=== PATIENT | male | born 1960 | race African-American/Black ===

== ENCOUNTER 2018-06-24 14:36 | Inpatient (IN) | payer OTHER ==
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
[2018-06-24 15:44] LABS: BASO % 0.4 % (0-2.0); EOS % 1.4 % (0-4.5); HEMATOCRIT 37.7 % (35.4-49); HEMOGLOBIN 12.4 GM/dL (11.7-16.9); LYMPH % 23.5 % (8-40); MCH 27.6 pg (25.7-33.7); MCHC 32.9 g/dl (32.0-35.9); MEAN CELL VOLUME 83.9 fl (80-96); MEAN PLT VOLUME 8.6 fl (7.5-11.1); MONO % 7.1 % (3.8-10.2); NEUT % 67.6 % (42.8-82.8); PLATELET COUNT 254 K/MM3 (134-434); RDW 13.1 % (11.9-15.9); WHITE BLOOD COUNT 12.3 K/mm3 (4.0-10.0)
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
[2018-06-24 16:04] LABS: INR 1.08 (0.83-1.09); PROTHROMBIN TIME (PATIENT) 12.8 SEC (9.7-13.0)
[2018-06-24] MEDS ORDERED: PIPERACILLIN/TAZOB 3.375 GM 3.375 GM in DEXTROSE 5%-WATER - 50 ML IVPB ONE (16:04)
[2018-06-24 16:05] LABS: ALBUMIN 3.2 g/dl (3.4-5.0); ALK PHOS 105 U/L (45-117); ANION GAP 6 MMOL/L (8-16); BILIRUBIN,TOTAL 0.5 mg/dL (0.2-1); BLOOD UREA NITROGEN 14 mg/dL (7-18); CALCIUM 8.3 mg/dL (8.5-10.1); CHLORIDE 102 mmol/L (98-107); CO2 31 mmol/L (21-32); CREATININE 1.3 mg/dL (0.55-1.3); GLUCOSE,RANDOM 236 mg/dL (74-106); POTASSIUM 3.4 mmol/L (3.5-5.1); SGOT/AST 28 U/L (15-37); SGPT/ALT 30 U/L (13-61); SODIUM 139 mmol/L (136-145); TOT PROT 7.5 g/dl (6.4-8.2)
[2018-06-24] MEDS ORDERED: VANCOMYCIN 1,500 MG in DEXTROSE 5%-WATER - 500 ML IVPB ONE (16:48)
[2018-06-24] MEDS ORDERED: PIPERACILLIN/TAZOB 3.375 GM 3.375 GM/50 ML BAG IVPB ONE (17:22)
[2018-06-24 17:26] LABS: MAGNESIUM 2.1 mg/dL (1.8-2.4); PHOSPHOROUS 2.8 mg/dL (2.5-4.9)
[2018-06-24] MEDS ORDERED: MIDAZOLAM HCL 2 MG/2 ML SINGLE DOSE VIAL IVPUSH ONE (17:48)
[2018-06-24] MEDS ORDERED: CLINDAMYCIN 600MG PREMIX IVPB 600 MG/50 ML BAG IVPB ONE (17:48)
[2018-06-24] MEDS ORDERED: ACETAMINOPHEN 1000 MG/100 ML VIAL (NON FORMULARY) IVPB ONE (17:49)
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
[2018-06-24 18:28] LABS: ERYTHROCYTE SEDIMENTATION RATE 40 mm/hr (0-20)
[2018-06-24] MEDS ORDERED: POTASSIUM CHLORIDE TABS 20 MEQ TABLET.ER (FP) PO ONE (18:30)
[2018-06-24] MEDS: VANCOMYCIN 1,500 MG in DEXTROSE 5%-WATER - 250 ML IVPB ONE (19:13)
[2018-06-24] MEDS ORDERED: INSULIN (NOVOLOG) ASPART 100 UNITS/ML 10ML VIAL ONE (19:15)
[2018-06-24] MEDS: INSULIN SLIDING SCALE (NOVOLOG) 1 VIAL SQ SCH (19:17)
[2018-06-24] MEDS: HEPARIN NA (PORCINE) 5,000 UNITS/ML 1ML VIAL SQ SCH (21:41)
[2018-06-24] MEDS: VANCOMYCIN 1 GM PREMIX - 1 GM/200 ML BAG IVPB SCH (21:41)
[2018-06-24] MEDS ORDERED: VANCOMYCIN 1 GM in D5W (PRE-DOCKED) 1,000 MG/250 ML IVPB SCH (22:00)
[2018-06-25] MEDS ORDERED: PIPERACILLIN/TAZOBACTAM 3.375 GM VIAL IVPB ONE ×2 (00:53→09:20)
[2018-06-25] MEDS ORDERED: DEXTROSE 5%-WATER - 50 ML IVPB ONE ×3 (00:53→17:21)
[2018-06-25] MEDS: PIPERACILLIN/TAZOB 3.375 GM 3.375 GM in DEXTROSE 5%-WATER - 50 ML IVPB SCH ×2 (01:36→10:06)
[2018-06-25] MEDS: HEPARIN NA (PORCINE) 5,000 UNITS/ML 1ML VIAL SQ SCH ×3 (05:11→22:09)
[2018-06-25] MEDS: INSULIN SLIDING SCALE (NOVOLOG) 1 VIAL SQ SCH ×3 (06:08→17:37)
[2018-06-25 06:59] LABS: BASO % 0.5 % (0-2.0); EOS % 1.3 % (0-4.5); HEMATOCRIT 37.2 % (35.4-49); HEMOGLOBIN 12.3 GM/dL (11.7-16.9); LYMPH % 28.2 % (8-40); MCH 27.5 pg (25.7-33.7); MEAN CELL VOLUME 83.4 fl (80-96); MEAN PLT VOLUME 8.1 fl (7.5-11.1); MONO % 6.5 % (3.8-10.2); NEUT % 63.5 % (42.8-82.8); PLATELET COUNT 246 K/MM3 (134-434); RBC 4.46 M/mm3 (4.00-5.60); RDW 13.3 % (11.9-15.9); WHITE BLOOD COUNT 9.2 K/mm3 (4.0-10.0)
[2018-06-25 07:33] LABS: INR 1.13 (0.83-1.09); PROTHROMBIN TIME (PATIENT) 13.3 SEC (9.7-13.0)
[2018-06-25 07:36] LABS: ANION GAP 5 MMOL/L (8-16); BLOOD UREA NITROGEN 11 mg/dL (7-18); CALCIUM 8.1 mg/dL (8.5-10.1); CHLORIDE 103 mmol/L (98-107); CO2 27 mmol/L (21-32); CREATININE 1.2 mg/dL (0.55-1.3); GLUCOSE,RANDOM 244 mg/dL (74-106); MAGNESIUM 2.1 mg/dL (1.8-2.4); PHOSPHOROUS 2.8 mg/dL (2.5-4.9); POTASSIUM 4.1 mmol/L (3.5-5.1); SODIUM 136 mmol/L (136-145)
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
[2018-06-25] MEDS: BACITRACIN 15 GM TUBE TOPICAL OINTMENT TP SCH (12:05)
[2018-06-25] MEDS: VANCOMYCIN 1 GM PREMIX - 1 GM/200 ML BAG IVPB SCH ×3 (12:12→23:59)
[2018-06-25] MEDS ORDERED: PT OWN MED DRAWER 7, Y5N ONE (13:23)
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
[2018-06-25] MEDS ORDERED: PIPERACILLIN/TAZOBACTAM 2.25 GM VIAL IVPB ONE (17:21)
[2018-06-25] MEDS: PIPERACILLIN/TAZOB 2.25 GM 2.25 GM in DEXTROSE 5%-WATER - 50 ML IVPB SCH (17:43)
[2018-06-25 18:18] LABS: PH,URINE 6.5 (5.0-8.0); URINE APPEARANCE CLEAR; URINE BILIRUBIN NEGATIVE (NEGATIVE); URINE COLOR YELLOW; URINE GLUCOSE (UA) 1+ (NEGATIVE); URINE KETONE NEGATIVE (NEGATIVE); URINE LEUK ESTERASE NEGATIVE (NEGATIVE); URINE NITRITE NEGATIVE (NEGATIVE); URINE PROTEIN NEGATIVE (NEGATIVE)
[2018-06-25] MEDS ORDERED: INSULIN (LEVEMIR) 100 UNITS/ML UNITS SQ SCH (22:00)
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
[2018-06-26] MEDS ORDERED: DEXTROSE 5%-WATER - 50 ML IVPB ONE ×3 (01:17→17:30)
[2018-06-26] MEDS ORDERED: PIPERACILLIN/TAZOBACTAM 2.25 GM VIAL IVPB ONE ×3 (01:17→17:30)
[2018-06-26] MEDS: PIPERACILLIN/TAZOB 2.25 GM 2.25 GM in DEXTROSE 5%-WATER - 50 ML IVPB SCH ×3 (02:47→17:35)
[2018-06-26] MEDS: HEPARIN NA (PORCINE) 5,000 UNITS/ML 1ML VIAL SQ SCH ×3 (05:08→21:07)
[2018-06-26] MEDS: INSULIN SLIDING SCALE (NOVOLOG) 1 VIAL SQ SCH ×2 (07:00→11:18)
[2018-06-26] MEDS: BACITRACIN 15 GM TUBE TOPICAL OINTMENT TP SCH (09:36)
--- NOTE | 2018-06-26 10:35 | EKG ---
Test Reason : Blood Pressure : / mmHG Vent. Rate : 076 BPM Atrial Rate : 076 BPM P-R Int : 176 ms QRS Dur : 102 ms QT Int : 390 ms P-R-T Axes : 053 092 024 degrees QTc Int : 438 ms NORMAL SINUS RHYTHM RIGHTWARD AXIS POSSIBLE ANTERIOR INFARCT , AGE UNDETERMINED ABNORMAL ECG NO PREVIOUS ECGS AVAILABLE Confirmed by ESPERANZA KOVACS MD ([id number]) on 06/26/2018 10:35:15 AM Referred By: Confirmed By:ESPERANZA KOVACS MD
[2018-06-26] MEDS ORDERED: INSULIN (NOVOLOG) ASPART 100 UNITS/ML 10ML VIAL ONE ×2 (11:17→20:12)
--- NOTE | 2018-06-26 11:58 | ECHO ---
Name: SHERIN MCDONALD JR Exam:Adult Echocardiogram Study Date: 06/26/2018 10:14 AM Age: 57 yrs Reason For Study: chest pain elevated troponin Height: 71 in Weight: 234 lb BSA: 2.3 m2 MMode/2D Measurements & Calculations IVSd: 1.2 cm Ao root diam: 3.1 cm LVIDd: 4.6 cm LA dimension: 3.7 cm LVIDs: 3.5 cm LVPWd: 1.2 cm EDV(Teich): 96.0 ml LVOT diam: 2.1 cm ESV(Teich): 49.9 ml Doppler Measurements & Calculations MV E max tor: 68.1 cm/sec Ao V2 max: 103.4 cm/sec MV A max tor: 59.2 cm/sec Ao max P.3 mmHg MV E/A: 1.1 Ao V2 mean: 78.5 cm/sec MV dec time: 0.15 sec Ao mean P.8 mmHg Ao V2 VTI: 19.9 cm BERTA(I,D): 1.7 cm2 BERTA(V,D): 1.6 cm2 LV V1 max P.94 mmHg SV(LVOT): 33.9 ml LV V1 mean P.50 mmHg LV V1 max: 48.6 cm/sec LV V1 mean: 33.0 cm/sec LV V1 VTI: 10.0 cm Med Peak E' Tor: 5.0 cm/sec Med E/e': 13.7 Lat Peak E' Tor: 5.1 cm/sec Lat E/e': 13.4 Procedure The study was technically good with many images being of high quality. Left Ventricle The left ventricle is normal in size. There is mild concentric left ventricular hypertrophy. Ejection Fraction = 50-55%. Left ventricular systolic function is low normal. The transmitral spectral Doppler flow pat tern is normal for age. Right Ventricle The right ventricle is normal in size and function. Atria The left atrial size is normal. Right atrium not well visualized. Mitral Valve The mitral valve is normal. There is trace mitral regurgitation. Tricuspid Valve The tricuspid valve is not well visualized, but is grossly normal. There is trace tricuspid regurgita tion. There was insufficient TR detected to calculate RV systolic pressure. Aortic Valve The aortic valve opens well. The aortic valve is normal in structure and function. The aortic valve i s trileaflet. No aortic regurgitation is present. Pulmonic Valve The pulmonic valve is not well visualized. Great Vessels The aortic root is normal size. Pericardium/Pleura There is no pericardial effusion. Interpretation Summary There is no comparison study available. The left ventricle is normal in size. There is mild concentric left ventricular hypertrophy. There is trace tricuspid regurgitation. Ejection Fraction = 50-55%. The right ventricle is normal in size and function. There is trace mitral regurgitation. Ritchie Noel MD 06/26/2018 11:57 AM
[2018-06-26] MEDS: VANCOMYCIN 1 GM PREMIX - 1 GM/200 ML BAG IVPB SCH ×2 (12:30→23:51)
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
[2018-06-26] MEDS ORDERED: INSULIN (LEVEMIR) 100 UNITS/ML UNITS SQ SCH (13:03)
[2018-06-26] MEDS ORDERED: INSULIN SLIDING SCALE (NOVOLOG) 1 VIAL SQ SCH (14:58)
--- NOTE | 2018-06-26 15:35 | PN ---
Physical Exam: SUBJECTIVE: Patient seen and examined. REBECCA overnight, no complaints. Pt. denies fevers, chills, blood in the stool or urine. OBJECTIVE: Vital Signs Period Temp Pulse Resp BP Sys/Reese Pulse Ox Last 24 Hr 97.7 F-99.2 F 77-88 9-20 148-157/81-98 98-98 GENERAL: The patient is awake, alert, and fully oriented, in no acute distress. HEAD: Normal with no signs of trauma. EYES: sclera anicteric, conjunctiva clear. No ptosis. ENT: Ears normal, nares patent, moist mucous membranes. NECK: Trachea midline, full range of motion, supple. LUNGS: Breath sounds equal, clear to auscultation bilaterally, no wheezes, no crackles, no accessory muscle use. HEART: Regular rate and rhythm, S1, S2 without murmur ABDOMEN: Soft, nontender, nondistended, normoactive bowel sounds, no guarding, no rebound, no hepatosplenomegaly, no masses. EXTREMITIES: 1+ left dorsal pedal pulses, warm, No calf tenderness. Decreased edema, thickened skin NEUROLOGICAL: Normal speech, gait not assessed. Unable to discriminate between dull and sharp up to the mid bartlett bilaterally on lower extremities bilaterally. PSYCH: Normal mood, normal affect. SKIN: B/l Lower extremity: Venous stasis ulceration with multiple ulcers of various stages of healing, multiple bullae varying in size and fluctuant. Laboratory Results - last 24 hr 06/25/18 06/25/18 06/25/18 17:20 17:20 17:20 POC Glucometer Urine Color Yellow Urine Appearance Clear Urine pH 6.5 Ur Specific [place] 1.013 Urine Protein Negative 29 H Urine Glucose (UA) 1+ H Urine Ketones Negative Urine Blood Negative Urine Nitrite Negative Urine Bilirubin Negative Urine Urobilinogen 1.0 Ur Leukocyte Esterase Negative Urine Creatinine 89.0 06/25/18 06/25/18 06/26/18 17:36 21:26 06:10 POC Glucometer 215 257 202 Urine Color Urine Appearance Urine pH Ur Specific [place] Urine Protein Urine Glucose (UA) Urine Ketones Urine Blood Urine Nitrite Urine Bilirubin Urine Urobilinogen Ur Leukocyte Esterase Urine Creatinine 06/26/18 11:14 POC Glucometer 259 Urine Color Urine Appearance Urine pH Ur Specific [place] Urine Protein Urine Glucose (UA) Urine Ketones Urine Blood Urine Nitrite Urine Bilirubin Urine Urobilinogen Ur Leukocyte Esterase Urine Creatinine Active Medications Home Medications Medication Instructions Recorded NK [No Known Home Medication] 06/24/18 Current Medications Bacitracin (Bacitracin -) 1 applic TP DAILY ROSMERY Last Admin: 06/26/18 09:36 Dose: 1 applic Heparin Sodium (Porcine) (Heparin -) 5,000 unit SQ TID ROSMERY Last Admin: 06/26/18 13:38 Dose: 5,000 unit Vancomycin HCl (Vancomycin 1 Gm Premix -) 1 gm in 200 mls @ 166.667 mls/hr IVPB Q12H ROSMERY; Protocol Last Admin: 06/26/18 12:30 Dose: 166.667 mls/hr Piperacillin Sod/Tazobactam (Sod 2.25 gm/ Dextrose) 50 mls @ 100 mls/hr IVPB Q8H-IV ROSMERY; Protocol Last Admin: 06/26/18 09:36 Dose: 100 mls/hr Insulin Aspart (Novolog Vial Sliding Scale -) 1 vial SQ TIDAC ROSMERY; Protocol Insulin Detemir (Levemir Vial) 15 units SQ HS ROSMERY Lisinopril (Prinivil) 20 mg PO DAILY [facility] ASSESSMENT/PLAN: Pt. is a 57 y.o. M w/o PMHx. presenting for increased lower extremity swelling and erythema. Foot X-ray pending read. Labs positive for elevated glucose and WBC count. Physical exam positive for deficits in sharp/dull discrimination, venous stasis ulcers and increased lower extremity swelling. #Cellulits Foot X-ray pending read, however per my read suspicious for osteomyleitis given Pt.s family Hx., neurological deficit pattern, and elevated random glucose. Pt. endorses taking Tylenol 3pills Q4H and therefore may be masking fever on initial presentation, will continue to monitor. Consult to Wound Care (Dr. Anderson) appreciated Consult to ID (Dr. Campbell) appreciated - Started Vancomycin 1g BID and Zosyn 3.375 Q8H based on weight and Cr. Cl. (Per guidelines of "Zak 2013" Pt. should be on Vancomycin 1gm Q8H and Zosyn 3.375 Q6H), will defer to ID recommendations. Duplex of LE negative for DVTs X-Ray reads suspicious for OM per my read, MRI of lower extremity positive for OM #Hyperglycemia likely 2/2 a newly diagnosed Diabetes Mellitus Random Glucose 236 on admission Strong Family Hx. of DM A1c: 11.9 start Levemir 15 units HS c/w BGM TIDAC and ISS TIDAC will need outpatient follow up with PCP will need referral to Instructional Support Services Director on discharge f/u Cr. /Albumin Ratio and Microalbumin Endocrine consult (Dr. Reed) appreciated #HTN BP consistently in 150s/80s start Lisinopril 20mg Echo(06/26/18): mild LVH, normal EF #FEN no IVF, encourage PO intake monitor electrolytes and replete as needed, replete potassium Na restricted diabetic diet #DVT Ppx. Heparin SQ 5k Visit type - Emergency Visit Emergency Visit: Yes ED Registration Date: 06/24/18 Care time: The patient presented to the Emergency Department on the above date and was hospitalized for further evaluation of their emergent condition. - New Patient This patient is new to me today: No - Critical Care Critical Care patient: No
[2018-06-26] MEDS: LISINOPRIL 20 MG TABLET (FP) PO SCH (15:49)
--- NOTE | 2018-06-26 16:52 | PN ---
Progress Note (short form) - Note Progress Note: surgery Asked to evaluate patient for b/l LE blisters and right big toe wound. Pt is a 57 yo M, with no known PMH (no PCP care), who presented with complaints of blisters on his lower extremities and a worsening ulcer on his R great toe over the past 3 weeks. Over the past few years, he has also noticed darkening and thickening of the skin on his b/l legs, with blisters that will rupture with clear fluid. 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 He has never been seen regularly by a PCP or vascular. He denies any fever or drainage from the ulcer on his toe. Pt denies any fevers/chills, headache, vision changes, syncope , chest pain, orthopnea/PND, palpitations, SOB, nausea/vomiting Vital Signs Temp 97.9 F 06/26/18 13:03 Pulse 88 06/26/18 13:03 Resp 9 L 06/26/18 13:03 BP 148/83 06/26/18 13:03 Pulse Ox 98 06/26/18 09:00 Intake & Output 06/25/18 06/26/18 06/26/18 23:59 11:59 23:59 Intake Total 1600 650 750 Output Total 400 Balance 1200 650 750 Intake: IVPB 350 350 Oral 1600 300 400 Output: Urine 400 Void 400 Other: Voiding Method Toilet Toilet # Unmeasured Voids Void 2 2 2 Bowel Movement Yes No CBC, BMP 06/25/18 06:10 06/25/18 06:10 PE: A&Ox3, NAD unlabored resp on RA B/l LE with diffuse edema, multiple blisters of various stages and chronic skin changes throughout b/l LE compartments. no tracking erythema, no foul odor or d/ c, Right great toe with stage 2 5x5cm ulcer, well circumscribed with fibrinous exudate in the center and beefy red base throughout no active d/c, no foul odor. Legs and feet warm to the touch. MRI right foot bony edema consistent with osteomeylitis. Problem List - Problems (1) Venous stasis ulcer Assessment/Plan: Patient newly diagnoses DM with venous stasis ulcers throughout LE and DM right great toe ulcer with osteomeylitis. 1) CTA with runoff to evaluate b/L LE vasculature 2) Santyl to center of wound right great toe 3) Bacitracin and Kurlex to b/l LE daily 4) compression kobi wraps b/l LE daily 5) Endocrine recommendations appreciated 6) IV ABX per ID Evaluation and plan discussed with Dr Anderson. Code(s): I83.009 - VARICOSE VEINS OF UNSP LOWER EXTREMITY W ULCER OF UNSP SITE; L97.909 - NON-PRS CHRONIC ULC UNSP PRT OF UNSP LOW LEG W UNSP SEVERITY
[2018-06-26] MEDS: COLLAGENASE CLOSTRIDIUM HIST. 30 GRAMS TUBE TP SCH (17:35)
--- NOTE | 2018-06-26 20:11 | PN ---
Progress Note (short form) - Note Progress Note: Vascular Surgery Pt seen and examined. Right great toe ulcer for 1 week. No palpable pulses in right foot. MRI confirms osteo. CTA done. awaiting official results. If found to have stenosis, might need angiogram to help healing. Martin Anderson DO
[2018-06-27] MEDS ORDERED: DEXTROSE 5%-WATER - 50 ML IVPB ONE ×3 (00:51→18:18)
[2018-06-27] MEDS ORDERED: PIPERACILLIN/TAZOBACTAM 2.25 GM VIAL IVPB ONE ×3 (00:51→18:18)
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
[2018-06-27] MEDS: PIPERACILLIN/TAZOB 2.25 GM 2.25 GM in DEXTROSE 5%-WATER - 50 ML IVPB SCH ×3 (02:20→18:20)
[2018-06-27] MEDS: HEPARIN NA (PORCINE) 5,000 UNITS/ML 1ML VIAL SQ SCH ×3 (05:42→21:40)
[2018-06-27] MEDS: INSULIN SLIDING SCALE (NOVOLOG) 1 VIAL SQ SCH ×4 (06:27→21:40)
[2018-06-27] MEDS ORDERED: metFORMIN HCL 500 MG TABLET (FP) PO SCH (07:00)
[2018-06-27 07:21] LABS: BASO % 0.4 % (0-2.0); EOS % 1.6 % (0-4.5); HEMATOCRIT 36.4 % (35.4-49); HEMOGLOBIN 12.4 GM/dL (11.7-16.9); LYMPH % 30.7 % (8-40); MCH 28.2 pg (25.7-33.7); MCHC 33.9 g/dl (32.0-35.9); MONO % 7.8 % (3.8-10.2); NEUT % 59.5 % (42.8-82.8); PLATELET COUNT 244 K/MM3 (134-434); RBC 4.38 M/mm3 (4.00-5.60); RDW 13.4 % (11.9-15.9)
[2018-06-27 07:27] LABS: ANION GAP 6 MMOL/L (8-16); BLOOD UREA NITROGEN 16 mg/dL (7-18); CALCIUM 8.3 mg/dL (8.5-10.1); CHLORIDE 105 mmol/L (98-107); CO2 28 mmol/L (21-32); CREATININE 1.4 mg/dL (0.55-1.3); GLUCOSE,RANDOM 210 mg/dL (74-106); PHOSPHOROUS 3.6 mg/dL (2.5-4.9); POTASSIUM 4.1 mmol/L (3.5-5.1); SODIUM 139 mmol/L (136-145)
[2018-06-27] MEDS: LISINOPRIL 20 MG TABLET (FP) PO SCH (10:04)
[2018-06-27] MEDS: COLLAGENASE CLOSTRIDIUM HIST. 30 GRAMS TUBE TP SCH (10:05)
[2018-06-27] MEDS: BACITRACIN 15 GM TUBE TOPICAL OINTMENT TP SCH (10:06)
[2018-06-27] MEDS: INSULIN (LEVEMIR) 100 UNITS/ML UNITS SQ SCH ×2 (10:23→21:40)
[2018-06-27] MEDS: VANCOMYCIN 1 GM PREMIX - 1 GM/200 ML BAG IVPB SCH (11:58)
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
--- NOTE | 2018-06-27 13:22 | PN ---
Physical Exam: SUBJECTIVE: Patient seen and examined. No acute events overnight. Pt. denies any new complaints. No fevers overnight. OBJECTIVE: Vital Signs Period Temp Pulse Resp BP Sys/Reese Pulse Ox Last 24 Hr 98.1 F-98.1 F 85-87 20-20 141-148/87-96 98 GENERAL: The patient is awake, alert, and fully oriented, in no acute distress. HEAD: Normal with no signs of trauma. EYES: sclera anicteric, conjunctiva clear. No ptosis. ENT: Ears normal, nares patent, moist mucous membranes. NECK: Trachea midline, full range of motion, supple. LUNGS: Breath sounds equal, clear to auscultation bilaterally, no wheezes, no crackles, no accessory muscle use. HEART: Regular rate and rhythm, S1, S2 without murmur ABDOMEN: Soft, nontender, nondistended, normoactive bowel sounds, no guarding, no rebound, no hepatosplenomegaly, no masses. EXTREMITIES: 1+ left dorsal pedal pulses, warm, No calf tenderness. Decreased edema, thickened skin NEUROLOGICAL: Normal speech, gait not assessed. Unable to discriminate between dull and sharp up to the mid bartlett bilaterally on lower extremities bilaterally. PSYCH: Normal mood, normal affect. SKIN: B/l Lower extremity bandaged Laboratory Results - last 24 hr 06/26/18 06/26/18 06/26/18 06:00 17:11 21:05 WBC RBC Hgb Hct MCV MCH MCHC RDW Plt Count MPV Absolute Neuts (auto) Neutrophils % Lymphocytes % Monocytes % Eosinophils % Basophils % Nucleated RBC % Sodium Potassium Chloride Carbon Dioxide Anion Gap BUN Creatinine Creat Clearance w eGFR POC Glucometer 235 228 Random Glucose Calcium Phosphorus Magnesium Random Vancomycin HIV Genotype Non reactive 06/27/18 06/27/18 06/27/18 05:38 06:30 06:30 WBC 8.0 RBC 4.38 Hgb 12.4 Hct 36.4 MCV 83.0 MCH 28.2 MCHC 33.9 RDW 13.4 Plt Count 244 MPV 8.0 Absolute Neuts (auto) 4.8 Neutrophils % 59.5 Lymphocytes % 30.7 Monocytes % 7.8 Eosinophils % 1.6 Basophils % 0.4 Nucleated RBC % 0 Sodium 139 Potassium 4.1 Chloride 105 Carbon Dioxide 28 Anion Gap 6 L BUN 16 Creatinine 1.4 H Creat Clearance w eGFR 52.62 POC Glucometer 209 Random Glucose 210 H Calcium 8.3 L Phosphorus 3.6 Magnesium 2.0 Random Vancomycin HIV Genotype 06/27/18 06/27/18 09:30 10:20 WBC RBC Hgb Hct MCV MCH MCHC RDW Plt Count MPV Absolute Neuts (auto) Neutrophils % Lymphocytes % Monocytes % Eosinophils % Basophils % Nucleated RBC % Sodium Potassium Chloride Carbon Dioxide Anion Gap BUN Creatinine Creat Clearance w eGFR POC Glucometer 203 Random Glucose Calcium Phosphorus Magnesium Random Vancomycin 12.4 L HIV Genotype Active Medications Home Medications Medication Instructions Recorded NK [No Known Home Medication] 06/24/18 Current Medications Amlodipine Besylate (Norvasc -) 5 mg PO DAILY [facility] Bacitracin (Bacitracin -) 1 applic TP DAILY [facility] Last Admin: 06/27/18 10:06 Dose: 1 applic Collagenase (Santyl -) 1 applic TP DAILY [facility]; Protocol Last Admin: 06/27/18 10:05 Dose: 1 applic Heparin Sodium (Porcine) (Heparin -) 5,000 unit SQ TID [facility] Last Admin: 06/27/18 05:42 Dose: 5,000 unit Vancomycin HCl (Vancomycin 1 Gm Premix -) 1 gm in 200 mls @ 166.667 mls/hr IVPB Q12H [facility]; Protocol Last Admin: 06/27/18 11:58 Dose: 166.667 mls/hr Piperacillin Sod/Tazobactam (Sod 2.25 gm/ Dextrose) 50 mls @ 100 mls/hr IVPB Q8H-IV [facility]; Protocol Last Admin: 06/27/18 10:04 Dose: 100 mls/hr Sodium Chloride (Normal Saline -) 1,000 mls @ 83 mls/hr IV [facility] Insulin Aspart (Novolog Vial Sliding Scale -) 1 vial SQ ACHS [facility]; Protocol Last Admin: 06/27/18 11:25 Dose: 4 units Insulin Detemir (Levemir Vial) 15 units SQ BID [facility] Last Admin: 06/27/18 10:23 Dose: 15 units Lisinopril (Prinivil) 20 mg PO DAILY [facility] Last Admin: 06/27/18 10:04 Dose: 20 mg ASSESSMENT/PLAN: Pt. is a 57 y.o. M w/o PMHx. presenting for increased lower extremity swelling and erythema. Foot X-ray pending read. Labs positive for elevated glucose and WBC count. Physical exam positive for deficits in sharp/dull discrimination, venous stasis ulcers and increased lower extremity swelling. #Cellulits Foot X-ray pending read, however per my read suspicious for osteomyleitis given Pt.s family Hx., neurological deficit pattern, and elevated random glucose. Pt. endorses taking Tylenol 3pills Q4H and therefore may be masking fever on initial presentation, will continue to monitor. Consult to Wound Care (Dr. Anderson) appreciated Consult to ID (Dr. Campbell) appreciated - Started Vancomycin 1g BID and Zosyn 3.375 Q8H based on weight and Cr. Cl. (Per guidelines of "Zak 2013" Pt. should be on Vancomycin 1gm Q8H and Zosyn 3.375 Q6H), will defer to ID recommendations. Duplex of LE negative for DVTs X-Ray reads suspicious for OM per my read, MRI of lower extremity positive for OM #Hyperglycemia likely 2/2 a newly diagnosed Diabetes Mellitus Random Glucose 236 on admission [facility] Hx. of DM A1c: 11.9 c/w Levemir 15 units BID c/w BGM TIDAC and ISS TIDAC will need outpatient follow up with PCP will need referral to Bottle Tester on discharge Cr. /Albumin Ratio: 91.8 Endocrine consult (Dr. Reed) appreciated- will start Metformin 500mg BID as outpatient #HTN BP consistently in 150s/80s hold Lisinopril 20mg in light of elevated Creatinine, start Norvasc 5mg Echo(06/26/18): mild LVH, normal EF #FEN no IVF, encourage PO intake monitor electrolytes and replete as needed, replete potassium Na restricted diabetic diet #DVT Ppx. Heparin SQ 5k Visit type - Emergency Visit Emergency Visit: Yes ED Registration Date: 06/24/18 Care time: The patient presented to the Emergency Department on the above date and was hospitalized for further evaluation of their emergent condition. - New Patient This patient is new to me today: Yes Date on this admission: 06/29/18 - Critical Care Critical Care patient: No
[2018-06-27 14:11] LABS: MICROALBUMIN/CREATININE RATIO 91.8 mg/g creat (0.0-30.0)
--- NOTE | 2018-06-27 15:13 | CONSULT ---
Consult - text type - Consultation Consultation Note: Podiatry Consultation: 57 year old diabetic male presented for admission with right great toe ulcer, redness and swelling to the leg. Patient notes that he has history of swelling to both legs but developed a wound of around 1-2 weeks duration, likely from shoegear irritation. Denies F/V/N/C/SOB/CP. Afebrile. Patient notes he does not go to primary care physician. PMHx: DM, HTN Meds: noted ALL: shellfish ALEAH: Pedal pulses nonpalpable, TG wnl, CFT about 3 seconds to all digits bilaterally. On the right foot, there is a medial hallux ulcer with fibrogranular base, macerated borders, down to capsule, no bone exposed, no purulence, (+) serous drainage, no soft tissue crepitus, no streaking cellulitis. MRI: (+) osteomyelitis distal phalanx of hallux Imp: 57 year old diabetic male with right great toe diabetic ulcer and osteomyelitis 1. Continue local wound care with santyl daily to right great toe 2. Reviewed MRI results and treatment options. Patient wants to treat with IV abx and wants to salvage the toe. Wound culture obtained at bedside. 3. PICC line and home IV infusion. 4. Vascular on board. 5. Patient would benefit from HBO eval for outpatient HBO Tx. 6. Will follow in wound healing center. [phone]. Se Barcenas DPM
[2018-06-27] MEDS: SODIUM CHLORIDE 1,000 ML IV SCH (15:22)
[2018-06-27] MEDS ORDERED: INSULIN (NOVOLOG) ASPART 100 UNITS/ML 10ML VIAL ONE (17:21)
--- NOTE | 2018-06-27 18:23 | PN ---
Progress Note (short form) - Note Progress Note: Vascular Surgery CTA reviewed. Suboptimal study as per radiologist. Vessels are patent above the knee. However below the knee the arteries cannot be seen due to venous contamination. Radiology recc that a repeat study be done. Cannot tell for sure if the toe will heal without knowing runoff to foot. can do angiogram on th. Martin Anderson DO
[2018-06-27] MEDS: amLODIPine BESYLATE 5 MG TABLET (FP) PO SCH (21:40)
[2018-06-28] MEDS ORDERED: PT OWN MED DRAWER 7, Y5N ONE ×2 (00:42→12:18)
[2018-06-28] MEDS: VANCOMYCIN 1 GM PREMIX - 1 GM/200 ML BAG IVPB SCH ×2 (00:49→12:23)
[2018-06-28] MEDS ORDERED: PIPERACILLIN/TAZOBACTAM 2.25 GM VIAL IVPB ONE ×3 (01:15→18:09)
[2018-06-28] MEDS ORDERED: DEXTROSE 5%-WATER - 50 ML IVPB ONE ×3 (01:15→18:10)
[2018-06-28] MEDS: PIPERACILLIN/TAZOB 2.25 GM 2.25 GM in DEXTROSE 5%-WATER - 50 ML IVPB SCH ×3 (02:46→18:12)
[2018-06-28] MEDS: INSULIN SLIDING SCALE (NOVOLOG) 1 VIAL SQ SCH ×4 (06:00→21:49)
[2018-06-28] MEDS: HEPARIN NA (PORCINE) 5,000 UNITS/ML 1ML VIAL SQ SCH ×3 (06:00→21:48)
[2018-06-28] MEDS: SODIUM CHLORIDE 1,000 ML IV SCH ×3 (06:31→22:38)
[2018-06-28 07:20] LABS: BASO % 0.6 % (0-2.0); EOS % 2.5 % (0-4.5); HEMATOCRIT 37.3 % (35.4-49); HEMOGLOBIN 12.1 GM/dL (11.7-16.9); LYMPH % 29.6 % (8-40); MCH 27.2 pg (25.7-33.7); MCHC 32.5 g/dl (32.0-35.9); MEAN CELL VOLUME 83.4 fl (80-96); MONO % 8.1 % (3.8-10.2); NEUT % 59.2 % (42.8-82.8); PLATELET COUNT 263 K/MM3 (134-434); RBC 4.47 M/mm3 (4.00-5.60); RDW 13.7 % (11.9-15.9); WHITE BLOOD COUNT 8.4 K/mm3 (4.0-10.0)
[2018-06-28 07:46] LABS: ANION GAP 3 MMOL/L (8-16); BLOOD UREA NITROGEN 15 mg/dL (7-18); CALCIUM 8.6 mg/dL (8.5-10.1); CHLORIDE 106 mmol/L (98-107); CO2 27 mmol/L (21-32); CREATININE 1.2 mg/dL (0.55-1.3); GLUCOSE,RANDOM 141 mg/dL (74-106); SODIUM 136 mmol/L (136-145)
--- NOTE | 2018-06-28 07:55 | SPA.PREOP ---
- PRE-OP NOTE Dx: Right great toe diabetic ulcer and osteomyelitis. Non-palpable pedal pulses. Planned Procedure: Angiogram Surgeon: Martin Anderson Last Vital Signs Temp Pulse Resp BP Pulse Ox 98.4 F 81 20 144/80 98 06/28/18 06:05 06/28/18 06:05 06/28/18 06:05 06/28/18 06:05 06/27/18 21:00 Lab Results WBC 8.4 K/mm3 (4.0-10.0) 06/28/18 06:55 RBC 4.47 M/mm3 (4.00-5.60) 06/28/18 06:55 Hgb 12.1 GM/dL (11.7-16.9) 06/28/18 06:55 Hct 37.3 % (35.4-49) 06/28/18 06:55 MCV 83.4 fl (80-96) 06/28/18 06:55 MCHC 32.5 g/dl (32.0-35.9) 06/28/18 06:55 RDW 13.7 % (11.9-15.9) 06/28/18 06:55 Plt Count 263 K/MM3 (134-434) 06/28/18 06:55 Sodium 136 mmol/L (136-145) 06/28/18 06:55 Potassium 4.0 mmol/L (3.5-5.1) 06/28/18 06:55 Chloride 106 mmol/L (98-107) 06/28/18 06:55 Carbon Dioxide 27 mmol/L (21-32) 06/28/18 06:55 Anion Gap 3 MMOL/L (8-16) L 06/28/18 06:55 BUN 15 mg/dL (7-18) 06/28/18 06:55 Creatinine 1.2 mg/dL (0.55-1.3) 06/28/18 06:55 Random Glucose 141 mg/dL (74-106) H 06/28/18 06:55 Calcium 8.6 mg/dL (8.5-10.1) 06/28/18 06:55 INR 1.13 (0.83-1.09) H 06/25/18 06:10 - ASSESSMENT/PLAN 1. Make NPO after midnight except po meds 2. GI/DVT PPX 3. Medical optimization / clearance 4. Consent to be obtained by surgeon after risks, benefits and alternatives discussed with patient and or Health Care Proxy. Problem List - Problems (1) Diabetic foot infection Code(s): E11.628 - TYPE 2 DIABETES MELLITUS WITH OTHER SKIN COMPLICATIONS; L08.9 - LOCAL INFECTION OF THE SKIN AND SUBCUTANEOUS TISSUE, UNSP Visit type - Case Type Case Type: ED Admission - New patient This patient is new to me today: Yes Date on this admission: 06/28/18
[2018-06-28] MEDS: amLODIPine BESYLATE 5 MG TABLET (FP) PO SCH (09:50)
[2018-06-28] MEDS: LACTOBACILLUS ACIDOPHILUS 1 TABLET PO SCH (09:50)
[2018-06-28] MEDS: COLLAGENASE CLOSTRIDIUM HIST. 30 GRAMS TUBE TP SCH (09:51)
[2018-06-28] MEDS: BACITRACIN 15 GM TUBE TOPICAL OINTMENT TP SCH (09:52)
[2018-06-28] MEDS: INSULIN (LEVEMIR) 100 UNITS/ML UNITS SQ SCH ×2 (09:53→21:48)
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
[2018-06-28] MEDS ORDERED: amLODIPine BESYLATE 10 MG TABLET (FP) PO SCH (11:15)
--- NOTE | 2018-06-28 11:16 | PN ---
Progress Note (short form) - Note Progress Note: Podiatry F/U: Seen/evaluated at bedside NAD. Denies F/V/N/c/SOB/CP. Afebrile. Awaiting angiogram with vascular sx. ALEAH: Pedal pulses nonpalpable, TG wnl, CFT about 3 seconds to all digits bilaterally. On the right foot, there is a medial hallux ulcer with fibrogranular base, macerated borders, down to capsule, no bone exposed, no purulence, (+) serous drainage, no soft tissue crepitus, no streaking cellulitis. Wound Cx: pending Imp: 57 year old diabetic male with right hallux osteomyelitis 1. IV abx per ID 2. F/u wound cx 3. For angiogram with vascular 4. Will follow Se Barcenas DPM
[2018-06-28] MEDS ORDERED: INSULIN (NOVOLOG) ASPART 100 UNITS/ML 10ML VIAL ONE (11:42)
[2018-06-28] MEDS ORDERED: amLODIPine BESYLATE 5 MG TABLET (FP) PO ONE (13:45)
--- NOTE | 2018-06-28 13:50 | PN ---
Physical Exam: SUBJECTIVE: Patient seen and examined. Pt. states that he has had 2 loose bowel movements overnight, but denies any other complaints. OBJECTIVE: Vital Signs Period Temp Pulse Resp BP Sys/Reese Pulse Ox Last 24 Hr 97.4 F-98.8 F 76-86 20-20 144-159/70-92 98 GENERAL: The patient is awake, alert, and fully oriented, in no acute distress. HEAD: Normal with no signs of trauma. EYES: sclera anicteric, conjunctiva clear. No ptosis. ENT: Ears normal, nares patent, moist mucous membranes. NECK: Trachea midline, full range of motion, supple. LUNGS: Breath sounds equal, clear to auscultation bilaterally, no wheezes, no crackles, no accessory muscle use. HEART: Regular rate and rhythm, S1, S2 without murmur ABDOMEN: Soft, nontender, nondistended, normoactive bowel sounds, no guarding, no rebound, no hepatosplenomegaly, no masses. EXTREMITIES: 1+ left dorsal pedal pulses, warm, No calf tenderness. Decreased edema, thickened skin NEUROLOGICAL: Normal speech, gait not assessed. Unable to discriminate between dull and sharp up to the mid bartlett bilaterally on lower extremities bilaterally. PSYCH: Normal mood, normal affect. SKIN: B/l Lower extremity bandaged Laboratory Results - last 24 hr 06/25/18 06/27/18 06/27/18 17:20 17:15 21:39 WBC RBC Hgb Hct MCV MCH MCHC RDW Plt Count MPV Absolute Neuts (auto) Neutrophils % Lymphocytes % Monocytes % Eosinophils % Basophils % Nucleated RBC % Sodium Potassium Chloride Carbon Dioxide Anion Gap BUN Creatinine Creat Clearance w eGFR POC Glucometer 246 202 Random Glucose Calcium TSH Ur Random Creatinine 86.4 Ur Random Microalbumin 79.3 Microalb/Creat Ratio 91.8 H Random Vancomycin 06/28/18 06/28/18 06/28/18 05:59 06:55 06:55 WBC 8.4 RBC 4.47 Hgb 12.1 Hct 37.3 MCV 83.4 MCH 27.2 MCHC 32.5 RDW 13.7 Plt Count 263 MPV 8.0 Absolute Neuts (auto) 5.0 Neutrophils % 59.2 Lymphocytes % 29.6 Monocytes % 8.1 Eosinophils % 2.5 Basophils % 0.6 Nucleated RBC % 0 Sodium 136 Potassium 4.0 Chloride 106 Carbon Dioxide 27 Anion Gap 3 L BUN 15 Creatinine 1.2 Creat Clearance w eGFR 62.86 POC Glucometer 137 Random Glucose 141 H Calcium 8.6 TSH 2.59 Ur Random Creatinine Ur Random Microalbumin Microalb/Creat Ratio Random Vancomycin 06/28/18 06/28/18 09:48 11:06 WBC RBC Hgb Hct MCV MCH MCHC RDW Plt Count MPV Absolute Neuts (auto) Neutrophils % Lymphocytes % Monocytes % Eosinophils % Basophils % Nucleated RBC % Sodium Potassium Chloride Carbon Dioxide Anion Gap BUN Creatinine Creat Clearance w eGFR POC Glucometer 248 Random Glucose Calcium TSH Ur Random Creatinine Ur Random Microalbumin Microalb/Creat Ratio Random Vancomycin 12.5 L Active Medications Home Medications Medication Instructions Recorded NK [No Known Home Medication] 06/24/18 Current Medications Amlodipine Besylate (Norvasc -) 10 mg PO DAILY [facility] Bacitracin (Bacitracin -) 1 applic TP DAILY [facility] Last Admin: 06/28/18 09:52 Dose: 1 applic Collagenase (Santyl -) 1 applic TP DAILY [facility]; Protocol Last Admin: 06/28/18 09:51 Dose: 1 applic Heparin Sodium (Porcine) (Heparin -) 5,000 unit SQ TID [facility] Last Admin: 06/28/18 13:47 Dose: 5,000 unit Vancomycin HCl (Vancomycin 1 Gm Premix -) 1 gm in 200 mls @ 166.667 mls/hr IVPB Q12H [facility]; Protocol Last Admin: 06/28/18 12:23 Dose: 166.667 mls/hr Piperacillin Sod/Tazobactam (Sod 2.25 gm/ Dextrose) 50 mls @ 100 mls/hr IVPB Q8H-IV [facility]; Protocol Last Admin: 06/28/18 09:49 Dose: 100 mls/hr Sodium Chloride (Normal Saline -) 1,000 mls @ 83 mls/hr IV ASDIR [facility] Last Admin: 06/28/18 06:31 Dose: 83 mls/hr Insulin Aspart (Novolog Vial Sliding Scale -) 1 vial SQ ACHS [facility]; Protocol Last Admin: 06/28/18 12:04 Dose: 4 units Insulin Detemir (Levemir Vial) 15 units SQ BID [facility] Last Admin: 06/28/18 09:53 Dose: 15 units Lactobacillus Acidophilus (Bacid -) 1 tab PO DAILY [facility] Last Admin: 06/28/18 09:50 Dose: 1 tab Lisinopril (Prinivil) 20 mg PO DAILY [facility] Last Admin: 06/27/18 10:04 Dose: 20 mg ASSESSMENT/PLAN: Pt. is a 57 y.o. M w/o PMHx. presenting for increased lower extremity swelling and erythema. Foot X-ray pending read. Labs positive for elevated glucose and WBC count. Physical exam positive for deficits in sharp/dull discrimination, venous stasis ulcers and increased lower extremity swelling. #Osteomyelitis Foot X-ray per my read suspicious for osteomyleitis given Pt.s family Hx., neurological deficit pattern, and elevated random glucose. Pt. endorses taking Tylenol 3pills Q4H and therefore may be masking fever on initial presentation, will continue to monitor. Consult to Wound Care (Dr. Anderson) appreciated- will need CT Angiogram tomorrow as lower extremity CT scan did not have good visualization Consult to ID (Dr. Campbell) appreciated - Started Vancomycin 1g BID and Zosyn 3.375 Q8H based on weight and Cr. Cl. (Per guidelines of "Azk 2013" Pt. C/ w Vancomycin 1gm Q8H and Zosyn 3.375 Q6H), will defer to ID recommendations. Duplex of LE negative for DVTs MRI of lower extremity positive for OM f/u wound culture results Podiatry consult appreciated- Pt. will need PICC line on D/c, hyperbaric Oxygen therapy, and wound healing ([phone]) Will start Bacid and discharge Pt. with prescription to help prevent Cdiff. #Hyperglycemia likely 2/2 a newly diagnosed Diabetes Mellitus Random Glucose 236 on admission [facility] Hx. of DM A1c: 11.9 c/w Levemir 15 units BID c/w BGM TIDAC and ISS TIDAC will need outpatient follow up with PCP will need referral to Clinical Mental Health Counselor on discharge Cr. /Albumin Ratio: 91.8 Endocrine consult (Dr. Reed) appreciated- will start Metformin 500mg BID as outpatient #PARIS Cr. 1.2-->1.4-->1.2 Hold Lisinopril Avoid nephrotoxic agents #HTN BP consistently in 150s/80s hold Lisinopril 20mg in light of elevated Creatinine, increase Norvasc to 10mg Echo(06/26/18): mild LVH, normal EF #FEN no IVF, encourage PO intake monitor electrolytes and replete as needed, replete potassium Na restricted diabetic diet #DVT Ppx. Heparin SQ 5k Visit type - Emergency Visit Emergency Visit: Yes ED Registration Date: 06/24/18 Care time: The patient presented to the Emergency Department on the above date and was hospitalized for further evaluation of their emergent condition. - New Patient This patient is new to me today: No - Critical Care Critical Care patient: No
[2018-06-29] MEDS ORDERED: PT OWN MED DRAWER 7, Y5N ONE ×3 (00:54→15:26)
[2018-06-29] MEDS: VANCOMYCIN 1 GM PREMIX - 1 GM/200 ML BAG IVPB SCH ×2 (00:55→15:05)
[2018-06-29] MEDS ORDERED: DEXTROSE 5%-WATER - 50 ML IVPB ONE ×3 (01:17→17:10)
[2018-06-29] MEDS ORDERED: PIPERACILLIN/TAZOBACTAM 2.25 GM VIAL IVPB ONE ×3 (01:17→17:09)
[2018-06-29] MEDS: PIPERACILLIN/TAZOB 2.25 GM 2.25 GM in DEXTROSE 5%-WATER - 50 ML IVPB SCH ×3 (03:22→17:24)
[2018-06-29] MEDS: HEPARIN NA (PORCINE) 5,000 UNITS/ML 1ML VIAL SQ SCH ×3 (06:24→21:41)
[2018-06-29] MEDS: INSULIN SLIDING SCALE (NOVOLOG) 1 VIAL SQ SCH ×4 (06:24→21:41)
[2018-06-29] MEDS ORDERED: INSULIN (NOVOLOG) ASPART 100 UNITS/ML 10ML VIAL ONE (07:02)
[2018-06-29] MEDS ORDERED: INSULIN (LEVEMIR) 100 UNITS/ML UNITS SQ ONE (07:03)
[2018-06-29] MEDS: PIPERACILLIN/TAZOB 3.375 GM 3.375 GM in DEXTROSE 5%-WATER - 50 ML IVPB SCH (07:27)
[2018-06-29 07:38] LABS: ANION GAP 4 MMOL/L (8-16); BASO % 0.6 % (0-2.0); BLOOD UREA NITROGEN 13 mg/dL (7-18); CALCIUM 8.4 mg/dL (8.5-10.1); CHLORIDE 105 mmol/L (98-107); CO2 26 mmol/L (21-32); CREATININE 1.2 mg/dL (0.55-1.3); EOS % 3.3 % (0-4.5); GLUCOSE,RANDOM 181 mg/dL (74-106); HEMATOCRIT 37.5 % (35.4-49); HEMOGLOBIN 12.4 GM/dL (11.7-16.9); LYMPH % 33.2 % (8-40); MAGNESIUM 2.2 mg/dL (1.8-2.4); MCH 27.6 pg (25.7-33.7); MEAN CELL VOLUME 83.6 fl (80-96); MEAN PLT VOLUME 8.1 fl (7.5-11.1); MONO % 7.1 % (3.8-10.2); NEUT % 55.8 % (42.8-82.8); PLATELET COUNT 270 K/MM3 (134-434); POTASSIUM 4.2 mmol/L (3.5-5.1); RBC 4.49 M/mm3 (4.00-5.60); RDW 13.7 % (11.9-15.9); SODIUM 135 mmol/L (136-145); WHITE BLOOD COUNT 7.9 K/mm3 (4.0-10.0)
[2018-06-29] MEDS ORDERED: INSULIN (LEVEMIR) 100 UNITS/ML UNITS SQ SCH (10:00)
[2018-06-29] MEDS: LACTOBACILLUS ACIDOPHILUS 1 TABLET PO SCH (10:06)
[2018-06-29] MEDS ORDERED: amLODIPine BESYLATE 10 MG TABLET (FP) PO ONE (10:15)
[2018-06-29] MEDS: COLLAGENASE CLOSTRIDIUM HIST. 30 GRAMS TUBE TP SCH (11:00)
[2018-06-29] MEDS: BACITRACIN 15 GM TUBE TOPICAL OINTMENT TP SCH (11:00)
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
[2018-06-29] MEDS ORDERED: LIDOCAINE HCL 1%, 10 MG/ML (20ML VIAL) ONE (11:16)
[2018-06-29] MEDS ORDERED: HEPARIN NA (PORCINE) 5,000 UNITS/ML 1ML VIAL ONE (11:16)
--- NOTE | 2018-06-29 11:22 | PN ---
Physical Exam: SUBJECTIVE: Patient seen and examined. No acute events overnight. Heparin and Novolog held in the AM. Pt. for OR today. OBJECTIVE: Vital Signs Period Temp Pulse Resp BP Sys/Reese Pulse Ox Last 24 Hr 98.3 F-98.8 F 76-84 18-22 137-159/79-96 99 GENERAL: The patient is awake, alert, and fully oriented, in no acute distress. HEAD: Normal with no signs of trauma. EYES: sclera anicteric, conjunctiva clear. No ptosis. ENT: Ears normal, nares patent, moist mucous membranes. NECK: Trachea midline, full range of motion, supple. LUNGS: Breath sounds equal, clear to auscultation bilaterally, no wheezes, no crackles, no accessory muscle use. HEART: Regular rate and rhythm, S1, S2 without murmur ABDOMEN: Soft, nontender, nondistended, normoactive bowel sounds, no guarding, no rebound, no hepatosplenomegaly, no masses. EXTREMITIES: 1+ left dorsal pedal pulses, warm, No calf tenderness. Decreased edema, thickened skin NEUROLOGICAL: Normal speech, gait not assessed. Unable to discriminate between dull and sharp up to the mid bartlett bilaterally on lower extremities bilaterally. PSYCH: Normal mood, normal affect. SKIN: B/l Lower extremity bandaged Laboratory Results - last 24 hr 06/28/18 06/28/18 06/28/18 11:06 17:03 21:44 WBC RBC Hgb Hct MCV MCH MCHC RDW Plt Count MPV Absolute Neuts (auto) Neutrophils % Lymphocytes % Monocytes % Eosinophils % Basophils % Nucleated RBC % Sodium Potassium Chloride Carbon Dioxide Anion Gap BUN Creatinine Creat Clearance w eGFR POC Glucometer 171 210 Random Glucose Calcium Magnesium Random Vancomycin 12.5 L 06/29/18 06/29/18 06/29/18 06:23 06:25 06:25 WBC 7.9 RBC 4.49 Hgb 12.4 Hct 37.5 MCV 83.6 MCH 27.6 MCHC 33.0 RDW 13.7 Plt Count 270 MPV 8.1 Absolute Neuts (auto) 4.4 Neutrophils % 55.8 Lymphocytes % 33.2 Monocytes % 7.1 Eosinophils % 3.3 Basophils % 0.6 Nucleated RBC % 0 Sodium 135 L Potassium 4.2 Chloride 105 Carbon Dioxide 26 Anion Gap 4 L BUN 13 Creatinine 1.2 Creat Clearance w eGFR 62.86 POC Glucometer 188 Random Glucose 181 H Calcium 8.4 L Magnesium 2.2 Random Vancomycin Active Medications Home Medications Medication Instructions Recorded NK [No Known Home Medication] 06/24/18 Current Medications Bacitracin (Bacitracin -) 1 applic TP DAILY [facility] Last Admin: 06/28/18 09:52 Dose: 1 applic Collagenase (Santyl -) 1 applic TP DAILY [facility]; Protocol Last Admin: 06/28/18 09:51 Dose: 1 applic Heparin Sodium (Porcine) (Heparin -) 5,000 unit SQ TID [facility] Last Admin: 06/29/18 06:24 Dose: Not Given Vancomycin HCl (Vancomycin 1 Gm Premix -) 1 gm in 200 mls @ 166.667 mls/hr IVPB Q12H [facility]; Protocol Last Admin: 06/29/18 00:55 Dose: 166.667 mls/hr Piperacillin Sod/Tazobactam (Sod 2.25 gm/ Dextrose) 50 mls @ 100 mls/hr IVPB Q8H-IV [facility]; Protocol Last Admin: 06/29/18 10:06 Dose: 100 mls/hr Sodium Chloride (Normal Saline -) 1,000 mls @ 83 mls/hr IV ASDIR [facility] Last Admin: 06/28/18 22:38 Dose: 83 mls/hr Insulin Aspart (Novolog Vial Sliding Scale -) 1 vial SQ ACHS [facility]; Protocol Last Admin: 06/29/18 06:24 Dose: Not Given Insulin Detemir (Levemir Vial) 20 units SQ BID [facility] Lactobacillus Acidophilus (Bacid -) 1 tab PO DAILY [facility] Last Admin: 06/29/18 10:06 Dose: 1 tab Lisinopril (Prinivil) 20 mg PO DAILY [facility] Last Admin: 06/27/18 10:04 Dose: 20 mg ASSESSMENT/PLAN: Pt. is a 57 y.o. M w/o PMHx. presenting for increased lower extremity swelling and erythema. Foot X-ray pending read. Labs positive for elevated glucose and WBC count. Physical exam positive for deficits in sharp/dull discrimination, venous stasis ulcers and increased lower extremity swelling. #Osteomyelitis Foot X-ray per my read suspicious for osteomyleitis given Pt.s family Hx., neurological deficit pattern, and elevated random glucose. Pt. endorses taking Tylenol 3pills Q4H and therefore may be masking fever on initial presentation, will continue to monitor. Consult to Wound Care (Dr. Anderson) appreciated- will need CT Angiogram tomorrow as lower extremity CT scan did not have good visualization Consult to ID (Dr. Campbell) appreciated - Started Vancomycin 1g BID and Zosyn 3.375 Q8H based on weight and Cr. Cl. (Per guidelines of "Zak 2013" Pt. C/ w Vancomycin 1gm Q8H and Zosyn 3.375 Q6H), will defer to ID recommendations. Duplex of LE negative for DVTs MRI of lower extremity positive for OM wound culture results growing: non-lactose fermenting gram negative bacilli, MRSA presumptive and Gram negative [facility] consult appreciated- Pt. will need PICC line on D/c, hyperbaric Oxygen therapy, and wound healing ([phone]) Will start Bacid and discharge Pt. with prescription to help prevent Cdiff. #Hyperglycemia likely 2/2 a newly diagnosed Diabetes Mellitus Random Glucose 236 on admission [facility] Hx. of DM A1c: 11.9 Increased Levemir to 20 units BID c/w BGM TIDAC and ISS TIDAC will need outpatient follow up with PCP will need referral to [facility] [employer] on discharge Cr. /Albumin Ratio: 91.8 Endocrine consult (Dr. Reed) appreciated- will start Metformin 500mg BID as outpatient #PARIS Cr. 1.2-->1.4-->1.2 Hold Lisinopril Avoid nephrotoxic agents #HTN BP consistently in 150s/80s hold Lisinopril 20mg in light of elevated Creatinine, increase Norvasc to 10mg Echo(06/26/18): mild LVH, normal EF #FEN no IVF, encourage PO intake monitor electrolytes and replete as needed, replete potassium Na restricted diabetic diet #DVT Ppx. Heparin SQ 5k Visit type - Emergency Visit Emergency Visit: Yes ED Registration Date: 06/24/18 Care time: The patient presented to the Emergency Department on the above date and was hospitalized for further evaluation of their emergent condition. - New Patient This patient is new to me today: No - Critical Care Critical Care patient: No - Discharge Referral Physician Referral: Martin Anderson DO ([facility])
[2018-06-29] MEDS ORDERED: MIDAZOLAM HCL 2 MG/2 ML SINGLE DOSE VIAL ONE ×2 (11:57→12:05)
[2018-06-29] MEDS ORDERED: fentaNYL CITRATE 250 MCG/5 ML VIAL ONE (12:05)
[2018-06-29] MEDS ORDERED: LIDOCAINE HCL 1%, 10 MG/ML (20ML VIAL) PNB ONE (12:17)
[2018-06-29] MEDS ORDERED: ONDANSETRON 4 MG/2 ML VIAL IVPUSH PRN ×2 (13:01→15:03)
[2018-06-29] MEDS ORDERED: LACTATED RINGERS SOLUTION 1,000 ML IV SCH (13:15)
--- NOTE | 2018-06-29 13:39 | OP ---
Operative Note - Note: Operative Date: 06/29/18 Pre-Operative Diagnosis: Right great toe ulcer Operation: Aortogram, RLE angiogram Findings: Good runoff in to foot via AT Post-Operative Diagnosis: Same as Pre-op Surgeon: Martin Anderson Anesthesia: Fractional Estimated Blood Loss (mls): 10 Operative Report Dictated: Yes
--- NOTE | 2018-06-29 13:41 | PN ---
Progress Note (short form) - Note Progress Note: Vascular Surgery S/P angiogram RLE Good runoff into foot. should heal ulcer. Cont santyl. PICC line for osteo. Will follow in wound care once DC. Pt is a candidate for HBO Martin Anderson DO
[2018-06-29] MEDS ORDERED: VANCOMYCIN 1,000 MG VIAL (RESTRICTED TO ID ONLY) ONE (14:00)
--- NOTE | 2018-06-29 14:06 | OP ---
DATE OF OPERATION: 06/29/2018 PREOPERATIVE DIAGNOSIS: Right great toe ulcer. POSTOPERATIVE DIAGNOSIS: Right great toe ulcer. PROCEDURE: Aortogram, right lower extremity angiogram. SURGEON: Martin Cervantes MD ANESTHESIA: Fractional. BLOOD LOSS: 10 mL. INDICATIONS: The patient is a 57-year-old male who comes in with a right great toe ulcer. He had an MRI performed showing that he has osteomyelitis of the area. Due to the fact that he is a newly diagnosed diabetic, he does not have any palpable pulses, he needed an angiogram to look at the runoff into his foot. Preoperatively, he had a CTA, which showed venous contaminant below the right knee, and we could not decipher whether patient had good runoff into the foot. Patient was consented for the procedure understanding all risks, benefits, and alternatives and was then taken to the operating room. PROCEDURE IN DETAIL: Once in the operating room, he was laid down on the operating table in the supine manner, and the area of the right and left groin was prepped and draped in the sterile surgical manner. We then went ahead and injected 10 mL of lidocaine 1% over the left common femoral artery. We then under ultrasound guidance visualized the left common femoral artery, and a micropuncture needle was used, and we punctured the left common femoral artery, a micropuncture wire was inserted, micropuncture sheath was inserted, and a traditional 5-Japanese sheath was inserted. We then placed a 0.035 floppy guidewire up into the aorta followed by an Omni Flush catheter. We then shot an aortogram via hand injection showing that the aorta and iliac arteries were without any disease. We then placed a 0.035 floppy guidewire up and over to the right common femoral artery and our Omni Flush catheter followed. We then shot an angiogram via hand injection showing that the common femoral artery, the profunda, and the SFA were patent. The popliteal artery was patent. TP trunk was patent. The trifurcation was patent. Patients main runoff was AT going into the foot, into the forefoot. Patient had PT runoff into the foot, as well. At this point, no intervention was needed. There was no areas of stenosis. We brought our Omniflush catheter up and over. The sheath was removed from the left groin. Pressure was held for 5 minutes. After there was no more bleeding, area was wet and dried, and Dermabond was placed. The patient tolerated the procedure with no complications. Patient transferred to PACU in stable condition. MARTIN CERVANTES DO [id number]
[2018-06-29] MEDS ORDERED: VANCOMYCIN 1,000 MG VIAL (RESTRICTED TO ID ONLY) IVPB ONE (14:07)
[2018-06-29] MEDS: LACTATED RINGERS SOLUTION 1,000 ML IV SCH (15:32)
[2018-06-29] MEDS: SODIUM CHLORIDE 1,000 ML IV SCH (16:50)
[2018-06-29] MEDS: INSULIN (LEVEMIR) 100 UNITS/ML UNITS SQ SCH (21:41)
[2018-06-29] MEDS ORDERED: amLODIPine BESYLATE 10 MG TABLET (FP) PO SCH (22:00)
[2018-06-30] MEDS: VANCOMYCIN 1 GM PREMIX - 1 GM/200 ML BAG IVPB SCH ×2 (00:53→14:42)
[2018-06-30] MEDS ORDERED: PIPERACILLIN/TAZOBACTAM 2.25 GM VIAL IVPB ONE ×3 (01:44→17:55)
[2018-06-30] MEDS ORDERED: DEXTROSE 5%-WATER - 50 ML IVPB ONE ×3 (01:44→17:55)
[2018-06-30] MEDS: PIPERACILLIN/TAZOB 2.25 GM 2.25 GM in DEXTROSE 5%-WATER - 50 ML IVPB SCH ×3 (01:53→18:14)
[2018-06-30] MEDS ORDERED: PT OWN MED DRAWER 7, Y5N ONE (01:55)
[2018-06-30] MEDS: SODIUM CHLORIDE 1,000 ML IV SCH ×2 (02:20→17:51)
[2018-06-30] MEDS: HEPARIN NA (PORCINE) 5,000 UNITS/ML 1ML VIAL SQ SCH ×3 (05:29→23:00)
[2018-06-30] MEDS: INSULIN SLIDING SCALE (NOVOLOG) 1 VIAL SQ SCH ×4 (06:15→23:03)
[2018-06-30 08:23] LABS: BASO % 0.5 % (0-2.0); EOS % 2.4 % (0-4.5); HEMATOCRIT 39.4 % (35.4-49); LYMPH % 29.8 % (8-40); MCH 27.8 pg (25.7-33.7); MCHC 32.9 g/dl (32.0-35.9); MEAN CELL VOLUME 84.3 fl (80-96); MEAN PLT VOLUME 8.2 fl (7.5-11.1); MONO % 6.7 % (3.8-10.2); NEUT % 60.6 % (42.8-82.8); PLATELET COUNT 267 K/MM3 (134-434); RBC 4.68 M/mm3 (4.00-5.60); RDW 13.5 % (11.9-15.9); WHITE BLOOD COUNT 8.6 K/mm3 (4.0-10.0)
[2018-06-30 08:33] LABS: ANION GAP 4 MMOL/L (8-16); BLOOD UREA NITROGEN 12 mg/dL (7-18); CALCIUM 8.6 mg/dL (8.5-10.1); CHLORIDE 103 mmol/L (98-107); CO2 27 mmol/L (21-32); CREATININE 1.3 mg/dL (0.55-1.3); GLUCOSE,RANDOM 121 mg/dL (74-106); POTASSIUM 4.3 mmol/L (3.5-5.1); SODIUM 134 mmol/L (136-145)
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
[2018-06-30] MEDS: LACTOBACILLUS ACIDOPHILUS 1 TABLET PO SCH (10:41)
[2018-06-30] MEDS: LISINOPRIL 20 MG TABLET (FP) PO SCH (10:42)
[2018-06-30] MEDS: BACITRACIN 15 GM TUBE TOPICAL OINTMENT TP SCH (12:40)
[2018-06-30] MEDS: INSULIN (LEVEMIR) 100 UNITS/ML UNITS SQ SCH ×2 (12:40→23:02)
[2018-06-30] MEDS: VANCOMYCIN 1,500 MG in DEXTROSE 5%-WATER - 250 ML IVPB ONE (14:36)
[2018-06-30] MEDS: COLLAGENASE CLOSTRIDIUM HIST. 30 GRAMS TUBE TP SCH (14:49)
[2018-06-30 16:20] VITALS: BMI 32.6
[2018-06-30] MEDS: LACTATED RINGERS SOLUTION 1,000 ML IV SCH (17:50)
[2018-07-01] MEDS ORDERED: DEXTROSE 5%-WATER - 50 ML IVPB ONE ×2 (01:18→09:20)
[2018-07-01] MEDS ORDERED: PIPERACILLIN/TAZOBACTAM 2.25 GM VIAL IVPB ONE ×2 (01:18→09:20)
[2018-07-01] MEDS: PIPERACILLIN/TAZOB 2.25 GM 2.25 GM in DEXTROSE 5%-WATER - 50 ML IVPB SCH ×2 (02:03→09:33)
[2018-07-01 06:12] VITALS: BP 150/78; PULSE 84; TEMP 98.6
[2018-07-01] MEDS: INSULIN SLIDING SCALE (NOVOLOG) 1 VIAL SQ SCH ×2 (06:24→13:08)
[2018-07-01] MEDS: HEPARIN NA (PORCINE) 5,000 UNITS/ML 1ML VIAL SQ SCH ×2 (06:24→13:09)
--- NOTE | 2018-07-01 07:52 | PN ---
Progress Note (short form) - Note Progress Note: Podiatry F/U: Seen/evaluated at bedside NAD. Pain controlled, denies F/V/N/C/SOB/CP. Afebrile. S/p RLE angiogram with Dr. Anderson. ALEAH: R foot: hallux diabetic ulcer with fibrogranular base, regular borders, no probing to bone, no purulence, no fluctuance, no streaking cellulitis, no signs of active infection. Minimal tenderness to palpation. Wound Cx: MRSA, E. Coli, steno maltophila MRI: (+) OM distal hallux Imp: 57 year old diabetic male with right great toe diabetic ulcer 1. C/w IV abx per ID. PICC in place 2. Continue local wound care 3. Partial weightbearing R heel with surgical shoe 4. S/p RLE angiogram, with good flow to the foot 5. Will f/u in wound healing center upon discharge. [phone] Se Barcenas DPM
[2018-07-01] MEDS: LISINOPRIL 20 MG TABLET (FP) PO SCH (09:32)
[2018-07-01] MEDS: LACTOBACILLUS ACIDOPHILUS 1 TABLET PO SCH (09:32)
[2018-07-01] MEDS: BACITRACIN 15 GM TUBE TOPICAL OINTMENT TP SCH (09:35)
[2018-07-01] MEDS: COLLAGENASE CLOSTRIDIUM HIST. 30 GRAMS TUBE TP SCH (09:35)
[2018-07-01] MEDS: INSULIN (LEVEMIR) 100 UNITS/ML UNITS SQ SCH (09:35)
[2018-07-01] MEDS: VANCOMYCIN 1 GM PREMIX - 1 GM/200 ML BAG IVPB SCH ×2 (12:08)
[2018-07-01] MEDS ORDERED: amLODIPine BESYLATE 10 MG TABLET (FP) PO SCH (22:00)
== END 2018-07-01 13:33 | disposition home or self-care (01) | DRG 344 ==
LOC: JER 14:36 → JERBED 16:45 → J5S 18:46 → J8W 06-29 14:41
PROVIDERS: ATTEND Internal Medicine
PROC: B40DYZZ Plain Radiography of Aorta and Bilateral Lower Extremity Arteries using Other Contrast (ICD-10-PCS; principal; 2018-06-29 12:00)
PROC: 02HV33Z Insertion of Infusion Device into Superior Vena Cava, Percutaneous Approach (ICD-10-PCS; 2018-06-30)
PROC: B518ZZA Fluoroscopy of Superior Vena Cava, Guidance (ICD-10-PCS; 2018-06-30)
DX: E11.69 Type 2 diabetes mellitus with other specified complication (principal); E87.6 Hypokalemia; I10 Essential (primary) hypertension; E66.3 Overweight; Z68.32 Body mass index [BMI] 32.0-32.9, adult; L03.116 Cellulitis of left lower limb; L03.115 Cellulitis of right lower limb; M86.9 Osteomyelitis, unspecified; E11.65 Type 2 diabetes mellitus with hyperglycemia; N17.9 Acute kidney failure, unspecified; E11.622 Type 2 diabetes mellitus with other skin ulcer
CPT/HCPCS: 36415; 36569; 71045-TC-FY; 73610-TC-RT-FY; 73630-TC-RT-FY; 73718-TC-RT; 75635-TC; 76000-TC-FY; 80048; 80053; 81003; 82043; 82570; 82962; 83036; 83735; 84100; 84156; 84443; 85025; 85610; 85651; 86140; 87040; 87070; 87186; 87205; 87389; 93005; 93010; 93306-TC; 93970-TC; 94760; 97116-GP; 97161-GP; 99285-25; G0480; J1644; J7030

== ENCOUNTER 2018-08-21 15:19 | Emergency (ER) | payer OTHER | END 2018-08-21 19:15 | disposition home or self-care (01) | LOC: JER 15:19 ==

== ENCOUNTER 2018-08-25 11:10 | Emergency (ER) | payer OTHER | END 2018-08-25 14:39 | disposition home or self-care (01) | LOC: JER 11:10 ==

== ENCOUNTER 2020-01-31 05:02 | Day surgery (SDC) | payer OTHER ==
[2020-01-29 10:02] VITALS: BMI 37.6
[2020-01-31 07:45] VITALS: BP 162/87; PULSE 71; TEMP 98.4
== END 2020-01-31 08:10 | disposition home or self-care (01) ==
LOC: JASU-ENDO 05:02
PROVIDERS: ATTEND Internal Medicine Gastroenterology
DX: Z53.8 Procedure and treatment not carried out for other reasons (principal)
CPT/HCPCS: 82962

== ENCOUNTER 2020-02-14 05:14 | Day surgery (SDC) | payer OTHER ==
[2020-02-13 10:25] VITALS: BMI 37.6
[2020-02-14 09:12] VITALS: TEMP 98.1
[2020-02-14 12:34] VITALS: BP 130/51; PULSE 69
== END 2020-02-14 12:05 | disposition home or self-care (01) ==
LOC: JASU-ENDO 05:14
PROVIDERS: ATTEND Internal Medicine Gastroenterology
PROC: 0DJD8ZZ Inspection of Lower Intestinal Tract, Via Natural or Artificial Opening Endoscopic (ICD-10-PCS; principal; 2020-02-14 11:00)
DX: Z12.11 Encounter for screening for malignant neoplasm of colon (principal)

== ENCOUNTER 2020-06-26 10:43 | Emergency (ER) | payer OTHER ==
[2020-06-26 11:32] VITALS: BP 133/68; PULSE 59; TEMP 98.5; BMI 48.2
== END 2020-06-26 14:05 | disposition home or self-care (01) ==
LOC: JER 10:43
DX: E16.2 Hypoglycemia, unspecified (principal)
CPT/HCPCS: 82962; 99284-25

== ENCOUNTER → 2020-06-26 | Day surgery (SDC) | payer OTHER ==
[2020-06-23 14:48] VITALS: BMI 41.0
== END | disposition home or self-care (01) ==
LOC: JASU-ENDO 04:44
PROVIDERS: ATTEND Internal Medicine Gastroenterology
DX: Z53.8 Procedure and treatment not carried out for other reasons (principal)
CPT/HCPCS: 82962

== ENCOUNTER 2022-01-18 13:36 | Inpatient (IN) | payer OTHER ==
[2022-01-18] MEDS ORDERED: PIPERACILLIN/TAZOB 4.5 GM 4.5 GM in DEXTROSE 5%-WATER 100 ML IVPB ONE (15:59)
[2022-01-18] MEDS ORDERED: VANCOMYCIN/WATER 1,250 MG/250 ML BAG IVPB ONE (15:59)
[2022-01-18] MEDS ORDERED: TETRACAINE/BENZOCAINE/BUTAMBEN 20 GM SPR TP ONE (16:59)
[2022-01-18 18:34] LABS: BASO % 0.7 % (0-2.0); EOS % 1.4 % (0-4.5); HEMATOCRIT 36.4 % (35.4-49); HEMOGLOBIN 12.1 GM/dL (11.7-16.9); MCH 27.1 pg (25.7-33.7); MCHC 33.2 g/dl (32.0-35.9); MEAN CELL VOLUME 81.6 fl (80-96); MEAN PLT VOLUME 8.4 fl (7.5-11.1); MONO % 5.3 % (3.8-10.2); NEUT % 74.6 % (42.8-82.8); PLATELET COUNT 282 10^3/uL (134-434); RBC 4.46 M/mm3 (4.00-5.60); RDW 14.3 % (11.9-15.9)
[2022-01-18 18:41] LABS: INR 1.15 (0.83-1.09); PROTHROMBIN TIME (PATIENT) 13.2 SEC (9.7-13.0)
[2022-01-18] MEDS ORDERED: VANCOMYCIN/WATER 1250 MG 1,250 MG/250 ML BAG IVPB ONE (18:47)
[2022-01-18] MEDS ORDERED: PIPERACILLIN/TAZOB 3.375 GM 3.375 GM/50 ML BAG IVPB ONE (18:48)
[2022-01-18 19:57] LABS: CALCIUM 9.5 mg/dL (8.5-10.1)
[2022-01-18 19:58] LABS: ALBUMIN 3.4 g/dl (3.4-5.0); BLOOD UREA NITROGEN 25.7 mg/dL (7-18)
[2022-01-18 20:01] LABS: CREATININE 2.2 mg/dL (0.55-1.3)
[2022-01-18 20:03] LABS: BILIRUBIN,TOTAL 0.6 mg/dL (0.2-1); TOT PROT 9.6 g/dl (6.4-8.2)
[2022-01-18 21:24] LABS: CALCIUM 9.2 mg/dL (8.5-10.1)
[2022-01-18 21:25] LABS: BLOOD UREA NITROGEN 25.4 mg/dL (7-18)
[2022-01-18 21:28] LABS: CREATININE 2.2 mg/dL (0.55-1.3)
[2022-01-19] MEDS ORDERED: PIPERACILLIN/TAZOB 2.25 GM 2.25 GM in DEXTROSE 5%-WATER - 50 ML IVPB SCH (02:00)
[2022-01-19] MEDS: HEPARIN NA (PORCINE) 5,000 UNITS/ML 1ML VIAL SQ SCH ×3 (02:09→21:43)
[2022-01-19] MEDS: SODIUM HYPOCHLORITE 0.5% 473 ML- BULK BOTTLE TP SCH ×2 (02:09→11:00)
[2022-01-19] MEDS ORDERED: PIPERACILLIN/TAZOB 3.375 GM 3.375 GM/50 ML BAG IVPB ONE (02:10)
[2022-01-19] MEDS ORDERED: HEPARIN NA (PORCINE) 5,000 UNITS/ML 1ML VIAL ONE (02:10)
[2022-01-19] MEDS: PIPERACILLIN/TAZOB 3.375 GM 3.375 GM in DEXTROSE 5%-WATER - 50 ML IVPB SCH ×4 (02:18→17:20)
[2022-01-19 04:35] VITALS: BMI 37.0
[2022-01-19] MEDS: LABETALOL HCL 200 MG TABLET (FP) PO SCH ×3 (06:28→21:46)
[2022-01-19] MEDS: INSULIN SLIDING SCALE (NOVOLOG) 1 VIAL SQ SCH ×3 (06:28→17:20)
[2022-01-19] MEDS ORDERED: VANCOMYCIN 1 GM/200 ML PREMIX BAG IVPB SCH (09:00)
[2022-01-19 09:02] LABS: HEMATOCRIT 35.7 % (35.4-49); HEMOGLOBIN 11.9 GM/dL (11.7-16.9); MCH 27.5 pg (25.7-33.7); MCHC 33.5 g/dl (32.0-35.9); MEAN CELL VOLUME 82.1 fl (80-96); MEAN PLT VOLUME 8.2 fl (7.5-11.1); PLATELET COUNT 253 10^3/uL (134-434); RBC 4.34 M/mm3 (4.00-5.60); RDW 14.5 % (11.9-15.9); WHITE BLOOD COUNT 8.6 K/mm3 (4.0-10.0)
[2022-01-19 09:44] LABS: CALCIUM 9.3 mg/dL (8.5-10.1); MAGNESIUM 2.1 mg/dL (1.8-2.4)
[2022-01-19 09:45] LABS: BLOOD UREA NITROGEN 31.1 mg/dL (7-18)
[2022-01-19 09:48] LABS: CREATININE 2.4 mg/dL (0.55-1.3); PHOSPHOROUS 3.8 mg/dL (2.5-4.9)
[2022-01-19] MEDS ORDERED: amLODIPine BESYLATE 10 MG TABLET (FP) PO SCH (10:00)
[2022-01-19] MEDS ORDERED: LISINOPRIL 20 MG TABLET PO SCH (10:00)
[2022-01-19] MEDS: LISINOPRIL 20 MG TABLET PO SCH (10:41)
[2022-01-19] MEDS: FUROSEMIDE 20 MG TABLET (FP) PO SCH (10:41)
[2022-01-19 10:42] LABS: ERYTHROCYTE SEDIMENTATION RATE 49 mm/hr (0-20)
[2022-01-19] MEDS: amLODIPine BESYLATE 10 MG TABLET (FP) PO SCH (10:42)
[2022-01-19] MEDS: VANCOMYCIN 1 GM in D5W (PRE-DOCKED) 1,000 MG/250 ML IVPB SCH (11:42)
[2022-01-19] MEDS: INSULIN (NOVOLOG) ASPART 100 UNITS/ML 10ML VIAL SQ SCH (18:00)
[2022-01-19] MEDS: ATORVASTATIN CA 40 MG TABLET (FP) PO SCH (21:46)
[2022-01-19] MEDS: INSULIN (LEVEMIR) 100 UNITS/ML UNITS SQ SCH (21:46)
[2022-01-20] MEDS: PIPERACILLIN/TAZOB 3.375 GM 3.375 GM in DEXTROSE 5%-WATER - 50 ML IVPB SCH ×3 (02:46→17:40)
[2022-01-20] MEDS: LABETALOL HCL 200 MG TABLET (FP) PO SCH ×3 (06:42→21:47)
[2022-01-20] MEDS: INSULIN (LEVEMIR) 100 UNITS/ML UNITS SQ SCH ×2 (06:42→21:47)
[2022-01-20] MEDS: INSULIN SLIDING SCALE (NOVOLOG) 1 VIAL SQ SCH ×3 (06:51→16:31)
[2022-01-20] MEDS: INSULIN (NOVOLOG) ASPART 100 UNITS/ML 10ML VIAL SQ SCH ×3 (06:52→16:31)
[2022-01-20 07:56] LABS: BASO % 0.8 % (0-2.0); EOS % 3.1 % (0-4.5); HEMATOCRIT 35.2 % (35.4-49); HEMOGLOBIN 11.4 GM/dL (11.7-16.9); LYMPH % 32.5 % (8-40); MCH 26.5 pg (25.7-33.7); MCHC 32.3 g/dl (32.0-35.9); MEAN CELL VOLUME 82.1 fl (80-96); MEAN PLT VOLUME 8.2 fl (7.5-11.1); MONO % 7.6 % (3.8-10.2); PLATELET COUNT 237 10^3/uL (134-434); RBC 4.29 M/mm3 (4.00-5.60); RDW 14.3 % (11.9-15.9); WHITE BLOOD COUNT 6.3 K/mm3 (4.0-10.0)
[2022-01-20 08:21] LABS: BLOOD UREA NITROGEN 35.3 mg/dL (7-18); CALCIUM 8.5 mg/dL (8.5-10.1); MAGNESIUM 2.1 mg/dL (1.8-2.4)
[2022-01-20 08:24] LABS: CREATININE 2.8 mg/dL (0.55-1.3); PHOSPHOROUS 4.1 mg/dL (2.5-4.9)
[2022-01-20 08:26] LABS: BILIRUBIN,TOTAL 0.6 mg/dL (0.2-1); TOT PROT 8.2 g/dl (6.4-8.2)
[2022-01-20] MEDS: HEPARIN NA (PORCINE) 5,000 UNITS/ML 1ML VIAL SQ SCH ×2 (09:34→21:47)
[2022-01-20] MEDS: FUROSEMIDE 20 MG TABLET (FP) PO SCH (09:35)
[2022-01-20] MEDS: SODIUM HYPOCHLORITE 0.5% 473 ML- BULK BOTTLE TP SCH (09:36)
[2022-01-20] MEDS: amLODIPine BESYLATE 10 MG TABLET (FP) PO SCH (09:36)
[2022-01-20] MEDS: LISINOPRIL 20 MG TABLET PO SCH (09:36)
[2022-01-20] MEDS ORDERED: VANCOMYCIN/WATER 1250 MG 1,250 MG/250 ML BAG IVPB ONE (10:00)
[2022-01-20] MEDS ORDERED: INSULIN (NOVOLOG) ASPART 100 UNITS/ML 10ML VIAL ONE (17:46)
[2022-01-20] MEDS ORDERED: INSULIN (LEVEMIR) 100 UNITS/ML UNITS SQ ONE (17:46)
[2022-01-20] MEDS: ATORVASTATIN CA 40 MG TABLET (FP) PO SCH (21:47)
[2022-01-21] MEDS: PIPERACILLIN/TAZOB 3.375 GM 3.375 GM in DEXTROSE 5%-WATER - 50 ML IVPB SCH (01:43)
[2022-01-21] MEDS: INSULIN SLIDING SCALE (NOVOLOG) 1 VIAL SQ SCH ×3 (06:26→16:25)
[2022-01-21] MEDS: INSULIN (NOVOLOG) ASPART 100 UNITS/ML 10ML VIAL SQ SCH ×3 (06:26→16:35)
[2022-01-21] MEDS: INSULIN (LEVEMIR) 100 UNITS/ML UNITS SQ SCH ×2 (06:27→22:09)
[2022-01-21] MEDS: LABETALOL HCL 200 MG TABLET (FP) PO SCH ×3 (06:29→22:10)
[2022-01-21] MEDS ORDERED: PIPERACILLIN/TAZOB 3.375 GM 3.375 GM in SODIUM CHLORIDE 50 ML IVPB SCH (08:15)
[2022-01-21 09:57] LABS: BASO % 0.5 % (0-2.0); EOS % 2.4 % (0-4.5); HEMATOCRIT 33.1 % (35.4-49); HEMOGLOBIN 11.1 GM/dL (11.7-16.9); LYMPH % 32.5 % (8-40); MCH 27.4 pg (25.7-33.7); MCHC 33.5 g/dl (32.0-35.9); MEAN CELL VOLUME 81.9 fl (80-96); MONO % 7.9 % (3.8-10.2); NEUT % 56.7 % (42.8-82.8); PLATELET COUNT 231 10^3/uL (134-434); RBC 4.04 M/mm3 (4.00-5.60); RDW 14.3 % (11.9-15.9); WHITE BLOOD COUNT 6.6 K/mm3 (4.0-10.0)
[2022-01-21 10:20] LABS: ALBUMIN 2.9 g/dl (3.4-5.0); BLOOD UREA NITROGEN 35.4 mg/dL (7-18); CALCIUM 8.8 mg/dL (8.5-10.1); MAGNESIUM 2.5 mg/dL (1.8-2.4)
[2022-01-21] MEDS: SODIUM HYPOCHLORITE 0.5% 473 ML- BULK BOTTLE TP SCH (10:22)
[2022-01-21] MEDS: HEPARIN NA (PORCINE) 5,000 UNITS/ML 1ML VIAL SQ SCH ×2 (10:22→22:02)
[2022-01-21] MEDS: PIPERACILLIN/TAZOB 2.25 GM 2.25 GM in DEXTROSE 5%-WATER - 50 ML IVPB SCH ×2 (10:22→17:08)
[2022-01-21 10:23] LABS: PHOSPHOROUS 3.2 mg/dL (2.5-4.9)
[2022-01-21 10:24] LABS: CREATININE 2.4 mg/dL (0.55-1.3)
[2022-01-21 10:25] LABS: BILIRUBIN,TOTAL 0.5 mg/dL (0.2-1)
[2022-01-21] MEDS: FUROSEMIDE 20 MG TABLET (FP) PO SCH (11:33)
[2022-01-21] MEDS ORDERED: VANCOMYCIN/WATER 1250 MG 1,250 MG/250 ML BAG IVPB ONE (16:42)
[2022-01-21] MEDS: VANCOMYCIN/WATER 1,250 MG/250 ML BAG IVPB SCH (16:58)
[2022-01-21] MEDS ORDERED: INSULIN (NOVOLOG) ASPART 100 UNITS/ML 10ML VIAL ONE (21:42)
[2022-01-21] MEDS: ATORVASTATIN CA 40 MG TABLET (FP) PO SCH (22:02)
[2022-01-22] MEDS: PIPERACILLIN/TAZOB 2.25 GM 2.25 GM in DEXTROSE 5%-WATER - 50 ML IVPB SCH ×2 (01:58→10:09)
[2022-01-22] MEDS: LABETALOL HCL 200 MG TABLET (FP) PO SCH ×3 (06:16→21:51)
[2022-01-22] MEDS: INSULIN (LEVEMIR) 100 UNITS/ML UNITS SQ SCH ×2 (06:16→22:00)
[2022-01-22] MEDS: INSULIN SLIDING SCALE (NOVOLOG) 1 VIAL SQ SCH ×3 (06:17→16:40)
[2022-01-22] MEDS: INSULIN (NOVOLOG) ASPART 100 UNITS/ML 10ML VIAL SQ SCH ×3 (07:02→16:37)
[2022-01-22 09:05] LABS: BASO % 0.8 % (0-2.0); EOS % 2.7 % (0-4.5); HEMATOCRIT 32.7 % (35.4-49); HEMOGLOBIN 10.9 GM/dL (11.7-16.9); LYMPH % 29.6 % (8-40); MCH 27.4 pg (25.7-33.7); MCHC 33.4 g/dl (32.0-35.9); MEAN PLT VOLUME 7.6 fl (7.5-11.1); MONO % 8.1 % (3.8-10.2); NEUT % 58.8 % (42.8-82.8); PLATELET COUNT 241 10^3/uL (134-434); RBC 3.99 M/mm3 (4.00-5.60); RDW 14.1 % (11.9-15.9); WHITE BLOOD COUNT 6.1 K/mm3 (4.0-10.0)
[2022-01-22 09:37] LABS: ALBUMIN 2.9 g/dl (3.4-5.0)
[2022-01-22 09:39] LABS: BLOOD UREA NITROGEN 32.5 mg/dL (7-18); CALCIUM 8.5 mg/dL (8.5-10.1); CREATININE 2.2 mg/dL (0.55-1.3); MAGNESIUM 2.3 mg/dL (1.8-2.4)
[2022-01-22 09:40] LABS: BILIRUBIN,TOTAL 0.5 mg/dL (0.2-1); PHOSPHOROUS 2.9 mg/dL (2.5-4.9)
[2022-01-22] MEDS: HEPARIN NA (PORCINE) 5,000 UNITS/ML 1ML VIAL SQ SCH ×2 (10:10→21:52)
[2022-01-22] MEDS: FUROSEMIDE 20 MG TABLET (FP) PO SCH (10:10)
[2022-01-22] MEDS: SODIUM HYPOCHLORITE 0.5% 473 ML- BULK BOTTLE TP SCH (10:11)
[2022-01-22] MEDS: CLINDAMYCIN HCL 150 MG CAPSULE (FP) PO SCH ×2 (15:47→21:52)
[2022-01-22] MEDS ORDERED: LISINOPRIL 10 MG TABLET PO SCH (18:15)
[2022-01-22] MEDS: ATORVASTATIN CA 40 MG TABLET (FP) PO SCH (21:52)
[2022-01-22 22:52] VITALS: BP 139/71; PULSE 73; RESP 20; TEMP 98.8
== END 2022-01-22 22:45 | disposition home or self-care (01) | DRG 638 ==
LOC: JER 13:36 → JERBED 16:02 → J7W 01-19 02:43
PROVIDERS: ADMIT Internal Medicine; ATTEND Internal Medicine
DX: E11.622 Type 2 diabetes mellitus with other skin ulcer (principal); E11.52 Type 2 diabetes mellitus with diabetic peripheral angiopathy with gangrene; L03.115 Cellulitis of right lower limb; L03.116 Cellulitis of left lower limb; I96 Gangrene, not elsewhere classified; I12.9 Hypertensive chronic kidney disease with stage 1 through stage 4 chronic kidney disease, or unspecified chronic kidney disease; N17.9 Acute kidney failure, unspecified; E11.22 Type 2 diabetes mellitus with diabetic chronic kidney disease; N18.9 Chronic kidney disease, unspecified; I89.0 Lymphedema, not elsewhere classified; L98.499 Non-pressure chronic ulcer of skin of other sites with unspecified severity; B87.89 Myiasis of other sites; E11.51 Type 2 diabetes mellitus with diabetic peripheral angiopathy without gangrene; E78.5 Hyperlipidemia, unspecified; E87.5 Hyperkalemia; E11.65 Type 2 diabetes mellitus with hyperglycemia
CPT/HCPCS: 0241U-QW; 36415; 73590-TC-RT-FY; 73610-TC-LT-FY; 73630-TC-LT; 76775-TC; 80048; 80053; 82962; 83036; 83735; 84100; 85025; 85027; 85610; 85651; 85730; 86140; 86850; 86900; 86901; 87040; 87070; 87077; 87081; 87186; 87205; 93005; 93010; 97116-GP; 97161-GP; 99285-25; G0480; J1644

== ENCOUNTER 2022-05-17 15:23 | Inpatient (IN) | payer OTHER ==
[2022-05-17] MEDS ORDERED: CLINDAMYCIN 900 MG PREMIX IVPB 900 MG/50 ML BAG IVPB ONE (18:50)
[2022-05-17] MEDS ORDERED: CLINDAMYCIN 600MG PREMIX IVPB 600 MG/50 ML BAG IVPB ONE ×2 (18:51→19:19)
[2022-05-17 19:48] LABS: INR 1.32 (0.83-1.09); PROTHROMBIN TIME (PATIENT) 15.3 SEC (9.7-13.0)
[2022-05-17 19:51] LABS: ACTIVATED PTT 36.7 SECONDS (25.2-36.5)
[2022-05-17 19:52] LABS: BASO % 0.3 % (0-2.0); EOS % 0.2 % (0-4.5); HEMATOCRIT 34.3 % (35.4-49); HEMOGLOBIN 10.9 GM/dL (11.7-16.9); LYMPH % 13.6 % (8-40); MCH 25.9 pg (25.7-33.7); MCHC 31.6 g/dl (32.0-35.9); MEAN CELL VOLUME 81.7 fl (80-96); MEAN PLT VOLUME 8.4 fl (7.5-11.1); MONO % 8.2 % (3.8-10.2); NEUT % 77.7 % (42.8-82.8); PLATELET COUNT 214 10^3/uL (134-434); RDW 14.1 % (11.9-15.9); WHITE BLOOD COUNT 15.9 K/mm3 (4.0-10.0)
[2022-05-17 20:21] LABS: CHLORIDE 98 mmol/L (98-107); SODIUM 134 mmol/L (136-145)
[2022-05-17 20:24] LABS: ALBUMIN 2.7 g/dl (3.4-5.0); CALCIUM 8.3 mg/dL (8.5-10.1); CO2 26 mmol/L (21-32); GLUCOSE,RANDOM 351 mg/dL (74-106)
[2022-05-17 20:25] LABS: BLOOD UREA NITROGEN 31.3 mg/dL (7-18)
[2022-05-17 20:26] LABS: CREATININE 2.7 mg/dL (0.55-1.3); SGOT/AST 58 U/L (15-37)
[2022-05-17 20:27] LABS: SGPT/ALT 19 U/L (13-61)
[2022-05-17 20:28] LABS: BILIRUBIN,TOTAL 0.9 mg/dL (0.2-1); TOT PROT 8.1 g/dl (6.4-8.2)
[2022-05-17 20:30] LABS: ALK PHOS 84 U/L (45-117)
[2022-05-17 20:40] LABS: ANION GAP 10 MMOL/L (8-16); POTASSIUM 6.1 mmol/L (3.5-5.1)
[2022-05-17] MEDS ORDERED: INSULIN (NOVOLOG) ASPART 100 UNITS/ML 10ML VIAL SQ ONE (21:12)
[2022-05-17 21:55] LABS: CALCIUM 8.1 mg/dL (8.5-10.1)
[2022-05-17 21:57] LABS: BLOOD UREA NITROGEN 33.4 mg/dL (7-18)
[2022-05-17 22:00] LABS: CREATININE 2.7 mg/dL (0.55-1.3)
[2022-05-17] MEDS: INSULIN (LEVEMIR) 100 UNITS/ML UNITS SQ SCH (22:18)
[2022-05-17] MEDS: INSULIN SLIDING SCALE (NOVOLOG) 1 VIAL SQ SCH (22:19)
[2022-05-17] MEDS ORDERED: PIPERACILLIN/TAZOB 3.375 GM 3.375 GM in DEXTROSE 5%-WATER - 50 ML IVPB SCH ×2 (22:45→23:00)
[2022-05-17] MEDS ORDERED: VANCOMYCIN 1,000 MG in DEXTROSE 5%-WATER - 250 ML IVPB SCH (22:45)
[2022-05-17] MEDS ORDERED: HEPARIN NA (PORCINE) 5,000 UNITS/ML 1ML VIAL ONE (22:58)
[2022-05-17] MEDS ORDERED: PIPERACILLIN/TAZOB 3.375 GM 3.375 GM/50 ML BAG IVPB ONE (22:58)
[2022-05-17] MEDS ORDERED: HEPARIN NA (PORCINE) 5,000 UNITS/ML 1ML VIAL SQ SCH (23:00)
[2022-05-17 23:08] LABS: ERYTHROCYTE SEDIMENTATION RATE 73 mm/hr (0-20)
[2022-05-17] MEDS ORDERED: VANCOMYCIN 1,750 MG in DEXTROSE 5%-WATER - 250 ML IVPB SCH (23:15)
[2022-05-18] MEDS ORDERED: VANCOMYCIN/WATER 2 GRAMS 2,000 MG/400 ML PIGGYBACK IVPB ONE
[2022-05-18] MEDS ORDERED: CLINDAMYCIN 600MG PREMIX IVPB 600 MG/50 ML BAG IVPB ONE (02:52)
[2022-05-18] MEDS: CLINDAMYCIN 600MG PREMIX IVPB 600 MG/50 ML BAG IVPB SCH ×3 (03:00→18:04)
[2022-05-18] MEDS ORDERED: PIPERACILLIN/TAZOB 3.375 GM 3.375 GM/50 ML BAG IVPB ONE (03:52)
[2022-05-18] MEDS: PIPERACILLIN/TAZOB 3.375 GM 3.375 GM in DEXTROSE 5%-WATER - 50 ML IVPB SCH ×3 (03:58→16:09)
[2022-05-18] MEDS: INSULIN SLIDING SCALE (NOVOLOG) 1 VIAL SQ SCH ×4 (06:37→21:45)
[2022-05-18 07:36] VITALS: BMI 35.6
[2022-05-18 08:55] LABS: HEMATOCRIT 32.6 % (35.4-49); HEMOGLOBIN 10.8 GM/dL (11.7-16.9); MCH 26.5 pg (25.7-33.7); MCHC 33.1 g/dl (32.0-35.9); MEAN PLT VOLUME 7.7 fl (7.5-11.1); PLATELET COUNT 214 10^3/uL (134-434); RBC 4.07 M/mm3 (4.00-5.60); RDW 13.7 % (11.9-15.9); WHITE BLOOD COUNT 10.9 K/mm3 (4.0-10.0)
[2022-05-18 09:25] LABS: POTASSIUM 3.7 mmol/L (3.5-5.1)
[2022-05-18 09:31] LABS: CALCIUM 8.7 mg/dL (8.5-10.1)
[2022-05-18 09:32] LABS: ALBUMIN 2.7 g/dl (3.4-5.0); BLOOD UREA NITROGEN 35.2 mg/dL (7-18); MAGNESIUM 2.2 mg/dL (1.8-2.4)
[2022-05-18] MEDS: SODIUM HYPOCHLORITE 0.5% 473 ML- BULK BOTTLE TP SCH (09:33)
[2022-05-18] MEDS: amLODIPine BESYLATE 10 MG TABLET (FP) PO SCH (09:33)
[2022-05-18] MEDS: INSULIN (LEVEMIR) 100 UNITS/ML UNITS SQ SCH ×2 (09:33→21:44)
[2022-05-18 09:35] LABS: CREATININE 2.3 mg/dL (0.55-1.3); PHOSPHOROUS 3.5 mg/dL (2.5-4.9)
[2022-05-18 09:37] LABS: BILIRUBIN,TOTAL 0.9 mg/dL (0.2-1); TOT PROT 7.4 g/dl (6.4-8.2)
[2022-05-18] MEDS ORDERED: LISINOPRIL 20 MG TABLET PO SCH (10:00)
[2022-05-18] MEDS ORDERED: PNEUMOC 20-VAL CONJ-DIP CRM/PF 0.5 ML SYRINGE IM ONE (12:00)
[2022-05-18] MEDS: CEFTRIAXONE 1 GM in DEXTROSE 5%-WATER - 50 ML IVPB SCH (18:04)
[2022-05-18] MEDS: ATORVASTATIN CA 40 MG TABLET (FP) PO SCH (21:45)
[2022-05-19] MEDS ORDERED: VANCOMYCIN PREMIX 1.75 GM 1,750 MG/350 ML PIGGYBACK IVPB SCH
[2022-05-19] MEDS: CLINDAMYCIN 600MG PREMIX IVPB 600 MG/50 ML BAG IVPB SCH ×3 (02:24→18:21)
[2022-05-19] MEDS: INSULIN SLIDING SCALE (NOVOLOG) 1 VIAL SQ SCH ×4 (06:28→21:59)
[2022-05-19] MEDS: CEFTRIAXONE 1 GM in DEXTROSE 5%-WATER - 50 ML IVPB SCH (09:51)
[2022-05-19] MEDS: INSULIN (LEVEMIR) 100 UNITS/ML UNITS SQ SCH ×2 (09:58→21:59)
[2022-05-19] MEDS: amLODIPine BESYLATE 10 MG TABLET (FP) PO SCH (09:59)
[2022-05-19] MEDS: SODIUM HYPOCHLORITE 0.5% 473 ML- BULK BOTTLE TP SCH (09:59)
[2022-05-19] MEDS ORDERED: HEPARIN NA (PORCINE) 5,000 UNITS/ML 1ML VIAL SQ SCH (10:00)
[2022-05-19] MEDS: ATORVASTATIN CA 40 MG TABLET (FP) PO SCH (22:00)
[2022-05-20] MEDS: CLINDAMYCIN 600MG PREMIX IVPB 600 MG/50 ML BAG IVPB SCH ×3 (01:58→18:01)
[2022-05-20] MEDS: INSULIN SLIDING SCALE (NOVOLOG) 1 VIAL SQ SCH ×4 (06:35→22:35)
[2022-05-20] MEDS: CEFTRIAXONE 1 GM in DEXTROSE 5%-WATER - 50 ML IVPB SCH (09:57)
[2022-05-20] MEDS: amLODIPine BESYLATE 10 MG TABLET (FP) PO SCH (09:57)
[2022-05-20] MEDS: SODIUM HYPOCHLORITE 0.5% 473 ML- BULK BOTTLE TP SCH (11:42)
[2022-05-20] MEDS: ATORVASTATIN CA 40 MG TABLET (FP) PO SCH (21:59)
[2022-05-20] MEDS ORDERED: DEXTROSE 50%-WATER 25 GM/50 ML DISP.SYRIN IVPUSH PRN (22:34)
[2022-05-20] MEDS: INSULIN (LEVEMIR) 100 UNITS/ML UNITS SQ SCH (22:51)
[2022-05-21] MEDS: CLINDAMYCIN 600MG PREMIX IVPB 600 MG/50 ML BAG IVPB SCH ×3 (02:06→17:28)
[2022-05-21] MEDS: INSULIN SLIDING SCALE (NOVOLOG) 1 VIAL SQ SCH ×4 (06:54→22:05)
[2022-05-21] MEDS: amLODIPine BESYLATE 10 MG TABLET (FP) PO SCH (09:50)
[2022-05-21] MEDS: CEFTRIAXONE 1 GM in DEXTROSE 5%-WATER - 50 ML IVPB SCH (09:50)
[2022-05-21] MEDS: SODIUM HYPOCHLORITE 0.5% 473 ML- BULK BOTTLE TP SCH (09:52)
[2022-05-21] MEDS: HEPARIN NA (PORCINE) 5,000 UNITS/ML 1ML VIAL SQ SCH ×2 (10:05→22:04)
[2022-05-21] MEDS: ATORVASTATIN CA 40 MG TABLET (FP) PO SCH (22:04)
[2022-05-21] MEDS: INSULIN (LEVEMIR) 100 UNITS/ML UNITS SQ SCH (22:04)
[2022-05-22 01:26] VITALS: RESP 20
[2022-05-22] MEDS: CLINDAMYCIN 600MG PREMIX IVPB 600 MG/50 ML BAG IVPB SCH ×3 (02:01→18:19)
[2022-05-22] MEDS: INSULIN SLIDING SCALE (NOVOLOG) 1 VIAL SQ SCH ×4 (06:26→22:48)
[2022-05-22] MEDS: amLODIPine BESYLATE 10 MG TABLET (FP) PO SCH (09:22)
[2022-05-22] MEDS: HEPARIN NA (PORCINE) 5,000 UNITS/ML 1ML VIAL SQ SCH ×2 (09:22→22:48)
[2022-05-22] MEDS: SODIUM HYPOCHLORITE 0.5% 473 ML- BULK BOTTLE TP SCH ×2 (09:22→12:12)
[2022-05-22] MEDS: CEFTRIAXONE 1 GM in DEXTROSE 5%-WATER - 50 ML IVPB SCH (10:51)
[2022-05-22] MEDS ORDERED: INSULIN (NOVOLOG) ASPART 100 UNITS/ML 10ML VIAL ONE (12:10)
[2022-05-22] MEDS: INSULIN (LEVEMIR) 100 UNITS/ML UNITS SQ SCH (22:47)
[2022-05-22] MEDS: MINERAL OIL/PET HY-PHL TOPICAL OINTMENT 454 GM JAR TP SCH (22:48)
[2022-05-22] MEDS: ATORVASTATIN CA 40 MG TABLET (FP) PO SCH (22:48)
[2022-05-23] MEDS: CLINDAMYCIN 600MG PREMIX IVPB 600 MG/50 ML BAG IVPB SCH ×3 (03:12→13:29)
[2022-05-23] MEDS: INSULIN SLIDING SCALE (NOVOLOG) 1 VIAL SQ SCH ×4 (06:47→22:42)
[2022-05-23] MEDS: CEFTRIAXONE 1 GM in DEXTROSE 5%-WATER - 50 ML IVPB SCH (09:55)
[2022-05-23] MEDS: HEPARIN NA (PORCINE) 5,000 UNITS/ML 1ML VIAL SQ SCH ×2 (09:55→22:28)
[2022-05-23] MEDS: SODIUM HYPOCHLORITE 0.5% 473 ML- BULK BOTTLE TP SCH (09:55)
[2022-05-23] MEDS: amLODIPine BESYLATE 10 MG TABLET (FP) PO SCH (09:55)
[2022-05-23] MEDS: MINERAL OIL/PET HY-PHL TOPICAL OINTMENT 454 GM JAR TP SCH ×2 (09:56→22:27)
[2022-05-23] MEDS ORDERED: INSULIN (LEVEMIR) 100 UNITS/ML UNITS SQ SCH (12:52)
[2022-05-23 14:26] LABS: BASO % 0.5 % (0-2.0); EOS % 2.1 % (0-4.5); HEMATOCRIT 33.5 % (35.4-49); HEMOGLOBIN 11.1 GM/dL (11.7-16.9); LYMPH % 27.4 % (8-40); MCH 26.9 pg (25.7-33.7); MEAN CELL VOLUME 81.5 fl (80-96); MEAN PLT VOLUME 7.9 fl (7.5-11.1); MONO % 6.7 % (3.8-10.2); NEUT % 63.3 % (42.8-82.8); PLATELET COUNT 341 10^3/uL (134-434); WHITE BLOOD COUNT 8.7 K/mm3 (4.0-10.0)
[2022-05-23 14:40] LABS: POTASSIUM 4.6 mmol/L (3.5-5.1)
[2022-05-23 14:43] LABS: CALCIUM 8.6 mg/dL (8.5-10.1)
[2022-05-23 14:44] LABS: ALBUMIN 2.9 g/dl (3.4-5.0); BLOOD UREA NITROGEN 41.3 mg/dL (7-18); MAGNESIUM 2.3 mg/dL (1.8-2.4)
[2022-05-23 14:47] LABS: CREATININE 2.2 mg/dL (0.55-1.3)
[2022-05-23 14:48] LABS: BILIRUBIN,TOTAL 0.4 mg/dL (0.2-1); TOT PROT 8.1 g/dl (6.4-8.2)
[2022-05-23] MEDS: ATORVASTATIN CA 40 MG TABLET (FP) PO SCH (22:31)
[2022-05-24] MEDS: INSULIN SLIDING SCALE (NOVOLOG) 1 VIAL SQ SCH ×3 (07:15→17:44)
[2022-05-24 10:01] LABS: POTASSIUM 4.9 mmol/L (3.5-5.1)
[2022-05-24 10:07] LABS: BASO % 0.7 % (0-2.0); EOS % 2.7 % (0-4.5); HEMATOCRIT 36.4 % (35.4-49); HEMOGLOBIN 11.8 GM/dL (11.7-16.9); LYMPH % 31.4 % (8-40); MCH 26.6 pg (25.7-33.7); MCHC 32.3 g/dl (32.0-35.9); MEAN CELL VOLUME 82.5 fl (80-96); MEAN PLT VOLUME 8.4 fl (7.5-11.1); MONO % 7.7 % (3.8-10.2); NEUT % 57.5 % (42.8-82.8); PLATELET COUNT 378 10^3/uL (134-434); RBC 4.42 M/mm3 (4.00-5.60); WHITE BLOOD COUNT 9.7 K/mm3 (4.0-10.0)
[2022-05-24 10:12] LABS: ALBUMIN 3.3 g/dl (3.4-5.0); BLOOD UREA NITROGEN 43.9 mg/dL (7-18); CALCIUM 9.2 mg/dL (8.5-10.1); MAGNESIUM 2.6 mg/dL (1.8-2.4)
[2022-05-24 10:15] LABS: CREATININE 2.1 mg/dL (0.55-1.3)
[2022-05-24 10:16] LABS: BILIRUBIN,TOTAL 0.4 mg/dL (0.2-1); TOT PROT 9.1 g/dl (6.4-8.2)
[2022-05-24] MEDS: CEFTRIAXONE 1 GM in DEXTROSE 5%-WATER - 50 ML IVPB SCH (10:35)
[2022-05-24] MEDS: SODIUM HYPOCHLORITE 0.5% 473 ML- BULK BOTTLE TP SCH (10:35)
[2022-05-24] MEDS: HEPARIN NA (PORCINE) 5,000 UNITS/ML 1ML VIAL SQ SCH (10:35)
[2022-05-24] MEDS: MINERAL OIL/PET HY-PHL TOPICAL OINTMENT 454 GM JAR TP SCH (10:35)
[2022-05-24] MEDS: amLODIPine BESYLATE 10 MG TABLET (FP) PO SCH (10:35)
[2022-05-24 15:16] VITALS: BP 137/68; PULSE 83; TEMP 97.9
== END 2022-05-24 17:40 | disposition home or self-care (01) | DRG 300 ==
LOC: JER 15:23 → OBSVTOIN 20:45 → JERBED 20:45 → J5S 05-18 04:07 → J8W 05-21 23:56
PROVIDERS: ADMIT Internal Medicine; ATTEND Nurse Practitioner Family
DX: E11.52 Type 2 diabetes mellitus with diabetic peripheral angiopathy with gangrene (principal); I87.313 Chronic venous hypertension (idiopathic) with ulcer of bilateral lower extremity; N17.9 Acute kidney failure, unspecified; L03.115 Cellulitis of right lower limb; L97.828 Non-pressure chronic ulcer of other part of left lower leg with other specified severity; L97.818 Non-pressure chronic ulcer of other part of right lower leg with other specified severity; L02.416 Cutaneous abscess of left lower limb; L02.415 Cutaneous abscess of right lower limb; M86.8X8 Other osteomyelitis, other site; I96 Gangrene, not elsewhere classified; E87.5 Hyperkalemia; I87.8 Other specified disorders of veins; E11.51 Type 2 diabetes mellitus with diabetic peripheral angiopathy without gangrene; I89.0 Lymphedema, not elsewhere classified; E78.00 Pure hypercholesterolemia, unspecified; I87.2 Venous insufficiency (chronic) (peripheral); D64.9 Anemia, unspecified; E11.65 Type 2 diabetes mellitus with hyperglycemia; E66.9 Obesity, unspecified; Z68.36 Body mass index [BMI] 36.0-36.9, adult; B96.20 Unspecified Escherichia coli [E. coli] as the cause of diseases classified elsewhere; B95.1 Streptococcus, group B, as the cause of diseases classified elsewhere; E11.622 Type 2 diabetes mellitus with other skin ulcer; E11.69 Type 2 diabetes mellitus with other specified complication; I12.9 Hypertensive chronic kidney disease with stage 1 through stage 4 chronic kidney disease, or unspecified chronic kidney disease; E11.22 Type 2 diabetes mellitus with diabetic chronic kidney disease; N18.30 Chronic kidney disease, stage 3 unspecified
CPT/HCPCS: 0241U-QW; 36415; 73590-TC-RT-FY; 73718-TC-RT; 76998-TC; 80048; 80053; 82962; 83036; 83735; 84100; 85025; 85027; 85610; 85651; 85730; 86140; 86850; 86900; 86901; 87040; 87070; 87077; 87186; 87205; 90677; 93005; 93010; 93970-TC; 97116-GP; 97161-GP; 99285-25; G0463-25; G0480; J1644

== ENCOUNTER 2023-04-07 14:07 | Inpatient (IN) | payer OTHER ==
[2023-04-07 14:41] VITALS: BMI 37.3
[2023-04-07] MEDS ORDERED: CEFEPIME HCL 2 GM VIAL (RESTRICTED TO ID) IVPB ONE (16:15)
[2023-04-07 16:31] LABS: BASO % 0.5 % (0-2.0); EOS % 1.5 % (0-4.5); HEMOGLOBIN 11.1 GM/dL (11.7-16.9); LYMPH % 19.6 % (8-40); MCH 26.5 pg (25.7-33.7); MCHC 32.6 g/dl (32.0-35.9); MEAN CELL VOLUME 81.3 fl (80-96); MEAN PLT VOLUME 8.3 fl (7.5-11.1); MONO % 7.1 % (3.8-10.2); NEUT % 71.3 % (42.8-82.8); PLATELET COUNT 238 10^3/uL (134-434); RBC 4.18 M/mm3 (4.00-5.60); RDW 15.5 % (11.9-15.9); WHITE BLOOD COUNT 10.6 K/mm3 (4.0-10.0)
[2023-04-07 16:44] LABS: INR 1.21 (0.83-1.09)
[2023-04-07] MEDS ORDERED: CEFEPIME 2 GM/100 ML BAG IVPB ONE (16:45)
[2023-04-07 16:47] LABS: ACTIVATED PTT 35.5 SECONDS (25.2-36.5)
[2023-04-07] MEDS: CEFEPIME 2 GM in DEXTROSE 5%-WATER 100 ML IVPB ONE (16:57)
[2023-04-07] MEDS ORDERED: PIPERACILLIN/TAZOB 4.5 GM 4.5 GM/100 ML BAG IVPB ONE (17:17)
[2023-04-07 17:24] LABS: ERYTHROCYTE SEDIMENTATION RATE 43 mm/hr (0-20)
[2023-04-07] MEDS: PIPERACILLIN/TAZOB 4.5 GM 4.5 GM in DEXTROSE 5%-WATER 100 ML IVPB ONE (17:25)
[2023-04-07 17:37] LABS: POTASSIUM 4.1 mmol/L (3.5-5.1)
[2023-04-07 17:39] LABS: ALBUMIN 2.4 g/dl (3.4-5.0); BLOOD UREA NITROGEN 20.2 mg/dL (7-18); CALCIUM 8.7 mg/dL (8.5-10.1)
[2023-04-07 17:42] LABS: CREATININE 1.8 mg/dL (0.55-1.3)
[2023-04-07 17:44] LABS: BILIRUBIN,TOTAL 0.2 mg/dL (0.2-1)
[2023-04-07] MEDS: VANCOMYCIN PREMIX 1.75 GM 1,750 MG/350 ML PIGGYBACK IVPB ONE (18:08)
[2023-04-08] MEDS: INSULIN ASPART SLIDING SCALE (NOVOLOG) 1 VIAL SQ SCH (00:26)
[2023-04-08] MEDS ORDERED: LABETALOL HCL 200 MG TABLET (FP) ONE (05:16)
[2023-04-08] MEDS ORDERED: HEPARIN NA (PORCINE) 5,000 UNITS/ML 1ML VIAL ONE (05:16)
[2023-04-08] MEDS: LABETALOL HCL 200 MG TABLET (FP) PO SCH (05:42)
[2023-04-08] MEDS: HEPARIN NA (PORCINE) 5,000 UNITS/ML 1ML VIAL SQ SCH (05:42)
[2023-04-08 07:13] LABS: BASO % 0.6 % (0-2.0); EOS % 1.4 % (0-4.5); HEMATOCRIT 34.7 % (35.4-49); HEMOGLOBIN 11.1 GM/dL (11.7-16.9); LYMPH % 19.8 % (8-40); MCH 26.8 pg (25.7-33.7); MCHC 32.2 g/dl (32.0-35.9); MEAN CELL VOLUME 83.3 fl (80-96); MEAN PLT VOLUME 9.2 fl (7.5-11.1); MONO % 7.9 % (3.8-10.2); NEUT % 70.3 % (42.8-82.8); PLATELET COUNT 230 10^3/uL (134-434); RBC 4.16 M/mm3 (4.00-5.60); RDW 15.1 % (11.9-15.9); WHITE BLOOD COUNT 10.7 K/mm3 (4.0-10.0)
[2023-04-08 07:38] LABS: POTASSIUM 3.9 mmol/L (3.5-5.1)
[2023-04-08 07:55] LABS: CALCIUM 8.6 mg/dL (8.5-10.1)
[2023-04-08 07:56] LABS: ALBUMIN 2.4 g/dl (3.4-5.0); BLOOD UREA NITROGEN 19.5 mg/dL (7-18); MAGNESIUM 2.1 mg/dL (1.8-2.4)
[2023-04-08 07:59] LABS: CREATININE 1.9 mg/dL (0.55-1.3); PHOSPHOROUS 3.1 mg/dL (2.5-4.9)
[2023-04-08 08:00] LABS: BILIRUBIN,TOTAL 0.6 mg/dL (0.2-1); TOT PROT 6.9 g/dl (6.4-8.2)
[2023-04-08] MEDS ORDERED: LISINOPRIL 20 MG TABLET ONE (10:28)
[2023-04-08] MEDS ORDERED: CEFEPIME 2 GM/100 ML BAG IVPB ONE (10:29)
[2023-04-08] MEDS ORDERED: FUROSEMIDE 20 MG TABLET (FP) ONE (10:29)
[2023-04-08] MEDS ORDERED: amLODIPine BESYLATE 10 MG TABLET (FP) ONE (10:29)
[2023-04-08] MEDS: amLODIPine BESYLATE 10 MG TABLET (FP) PO SCH (10:32)
[2023-04-08] MEDS: FUROSEMIDE 20 MG TABLET (FP) PO SCH (10:32)
[2023-04-08] MEDS: LISINOPRIL 20 MG TABLET PO SCH (10:33)
[2023-04-08] MEDS: CEFEPIME 2 GM in DEXTROSE 5%-WATER 100 ML IVPB SCH ×2 (10:34→16:23)
[2023-04-08] MEDS: CEFEPIME HCL 2 GM VIAL (RESTRICTED TO ID) IVPB SCH (13:44)
[2023-04-08] MEDS: PIPERACILLIN/TAZOB 2.25 GM 2.25 GM in DEXTROSE 5%-WATER - 50 ML IVPB SCH (16:13)
[2023-04-08] MEDS ORDERED: VANCOMYCIN PREMIX 1.5 GM 1,500 MG/300 ML BAG IVPB SCH (17:00)
[2023-04-08] MEDS: ATORVASTATIN CA 40 MG TABLET (FP) PO SCH (21:39)
[2023-04-09 10:26] LABS: BASO % 0.8 % (0-2.0); EOS % 0.8 % (0-4.5); HEMATOCRIT 31.9 % (35.4-49); HEMOGLOBIN 10.2 GM/dL (11.7-16.9); LYMPH % 14.9 % (8-40); MCH 26.4 pg (25.7-33.7); MEAN CELL VOLUME 82.5 fl (80-96); MEAN PLT VOLUME 8.8 fl (7.5-11.1); MONO % 10.8 % (3.8-10.2); NEUT % 72.7 % (42.8-82.8); RBC 3.87 M/mm3 (4.00-5.60); RDW 15.1 % (11.9-15.9); WHITE BLOOD COUNT 11.2 K/mm3 (4.0-10.0)
[2023-04-09 10:43] LABS: POTASSIUM 3.8 mmol/L (3.5-5.1)
[2023-04-09 10:50] LABS: CALCIUM 8.3 mg/dL (8.5-10.1)
[2023-04-09 10:51] LABS: BLOOD UREA NITROGEN 26.4 mg/dL (7-18)
[2023-04-09 10:53] LABS: CREATININE 2.4 mg/dL (0.55-1.3)
[2023-04-09 11:52] LABS: PLATELET COUNT 197 10^3/uL (134-434)
[2023-04-09] MEDS: VANCOMYCIN PREMIX 1.5 GM 1,500 MG/300 ML BAG IVPB ONE (14:46)
[2023-04-09] MEDS: SODIUM CHLORIDE 1,000 ML IV SCH (21:16)
[2023-04-09] MEDS ORDERED: [UNRECOGNIZED DRUG - OTHER] SQ SCH (22:00)
[2023-04-09] MEDS ORDERED: INSULIN GLARGINE HUM REC ANLOG U SQ SCH (22:00)
[2023-04-09] MEDS ORDERED: INSULIN GLARGINE HUM REC ANLOG SQ SCH (22:00)
[2023-04-09] MEDS ORDERED: [UNRECOGNIZED DRUG - OTHER] SQ SCH (22:00)
[2023-04-10] MEDS: ACETAMINOPHEN 325 MG TABLET (FP) PO PRN (09:02)
[2023-04-10 09:08] LABS: ARTERIAL BLD GAS O2 SATURATION 94.5 % (95-98); ARTERIAL BLOOD GAS BASE EXCESS 0.6 mmol/L (-2-2); ARTERIAL BLOOD GAS PO2 69.4 mmHg (80-100); ARTERIAL BLOOD GAS pH 7.433 (7.350-7.450)
[2023-04-10 09:13] LABS: ALLENS TEST POSITIVE
[2023-04-10 10:44] LABS: POTASSIUM 3.7 mmol/L (3.5-5.1)
[2023-04-10 10:47] LABS: BASO % 0.5 % (0-2.0); EOS % 2.2 % (0-4.5); HEMATOCRIT 32.7 % (35.4-49); HEMOGLOBIN 10.8 GM/dL (11.7-16.9); LYMPH % 15.5 % (8-40); MCH 27.3 pg (25.7-33.7); MCHC 33.2 g/dl (32.0-35.9); MEAN CELL VOLUME 82.4 fl (80-96); MEAN PLT VOLUME 9.5 fl (7.5-11.1); MONO % 9.6 % (3.8-10.2); NEUT % 72.2 % (42.8-82.8); PLATELET COUNT 200 10^3/uL (134-434); RBC 3.96 M/mm3 (4.00-5.60); RDW 15.1 % (11.9-15.9)
[2023-04-10 10:58] LABS: ALBUMIN 2.2 g/dl (3.4-5.0); CALCIUM 8.3 mg/dL (8.5-10.1)
[2023-04-10 10:59] LABS: BLOOD UREA NITROGEN 28.6 mg/dL (7-18)
[2023-04-10 11:01] LABS: CREATININE 2.4 mg/dL (0.55-1.3)
[2023-04-10 11:03] LABS: BILIRUBIN,TOTAL 0.8 mg/dL (0.2-1); TOT PROT 7.1 g/dl (6.4-8.2)
[2023-04-10 12:11] LABS: N-TERMINAL BNP 1207.7 pg/ml (5-125)
[2023-04-10 12:12] LABS: N-TERMINAL BNP 2651.8 pg/ml (5-125)
[2023-04-10] MEDS: MINERAL OIL/PET HY-PHL TOPICAL OINTMENT 454 GM JAR TP SCH (19:12)
[2023-04-11 08:57] LABS: BASO % 0.6 % (0-2.0); EOS % 2.7 % (0-4.5); HEMATOCRIT 31.8 % (35.4-49); HEMOGLOBIN 10.5 GM/dL (11.7-16.9); LYMPH % 23.3 % (8-40); MCH 27.3 pg (25.7-33.7); MCHC 33.2 g/dl (32.0-35.9); MEAN CELL VOLUME 82.4 fl (80-96); MEAN PLT VOLUME 9.1 fl (7.5-11.1); MONO % 10.8 % (3.8-10.2); NEUT % 62.6 % (42.8-82.8); PLATELET COUNT 223 10^3/uL (134-434); RBC 3.86 M/mm3 (4.00-5.60); RDW 15.3 % (11.9-15.9); WHITE BLOOD COUNT 8.8 K/mm3 (4.0-10.0)
[2023-04-11] MEDS ORDERED: INSULIN ASPART SLIDING SCALE (NOVOLOG) 1 VIAL SQ ONE (11:06)
[2023-04-11] MEDS: LINEZOLID 600 MG TABLET (RESTRICTED TO ID) PO SCH (11:12)
[2023-04-11 11:43] LABS: POTASSIUM 3.9 mmol/L (3.5-5.1)
[2023-04-11 11:50] LABS: BLOOD UREA NITROGEN 31.6 mg/dL (7-18)
[2023-04-11 11:51] LABS: ALBUMIN 2.2 g/dl (3.4-5.0)
[2023-04-11 11:54] LABS: CREATININE 2.3 mg/dL (0.55-1.3)
[2023-04-11 11:55] LABS: BILIRUBIN,TOTAL 0.6 mg/dL (0.2-1); TOT PROT 6.8 g/dl (6.4-8.2)
[2023-04-12] MEDS ORDERED: INSULIN ASPART SLIDING SCALE (NOVOLOG) 1 VIAL SQ ONE ×2 (06:56→08:45)
[2023-04-12 11:40] LABS: HEMATOCRIT 30.8 % (35.4-49); MCH 27.1 pg (25.7-33.7); MCHC 32.6 g/dl (32.0-35.9); MEAN PLT VOLUME 9.4 fl (7.5-11.1); PLATELET COUNT 232 10^3/uL (134-434); RDW 14.9 % (11.9-15.9); WHITE BLOOD COUNT 8.5 K/mm3 (4.0-10.0)
[2023-04-12 11:44] LABS: POTASSIUM 4.1 mmol/L (3.5-5.1)
[2023-04-12 11:53] LABS: BLOOD UREA NITROGEN 31.3 mg/dL (7-18); CALCIUM 8.2 mg/dL (8.5-10.1)
[2023-04-12 11:57] LABS: CREATININE 2.2 mg/dL (0.55-1.3)
[2023-04-12] MEDS: FUROSEMIDE 40 MG/4 ML INJECTABLE VIAL IVPUSH ONE (12:09)
[2023-04-13] MEDS: FUROSEMIDE 40 MG TABLET (FP) PO SCH (09:02)
[2023-04-13 10:40] LABS: HEMATOCRIT 30.8 % (35.4-49); HEMOGLOBIN 10.2 GM/dL (11.7-16.9); MCH 27.2 pg (25.7-33.7); MEAN CELL VOLUME 82.6 fl (80-96); MEAN PLT VOLUME 9.1 fl (7.5-11.1); PLATELET COUNT 257 10^3/uL (134-434); RBC 3.74 M/mm3 (4.00-5.60); RDW 15.1 % (11.9-15.9); WHITE BLOOD COUNT 9.8 K/mm3 (4.0-10.0)
[2023-04-14 09:29] LABS: BASO % 0.6 % (0-2.0); EOS % 2.6 % (0-4.5); HEMATOCRIT 32.3 % (35.4-49); HEMOGLOBIN 10.4 GM/dL (11.7-16.9); LYMPH % 24.6 % (8-40); MCH 26.6 pg (25.7-33.7); MCHC 32.1 g/dl (32.0-35.9); MEAN CELL VOLUME 82.9 fl (80-96); MEAN PLT VOLUME 9.2 fl (7.5-11.1); MONO % 10.1 % (3.8-10.2); NEUT % 62.1 % (42.8-82.8); PLATELET COUNT 274 10^3/uL (134-434); RDW 15.1 % (11.9-15.9); WHITE BLOOD COUNT 9.9 K/mm3 (4.0-10.0)
[2023-04-14 09:42] LABS: POTASSIUM 4.3 mmol/L (3.5-5.1)
[2023-04-14 10:20] LABS: ALBUMIN 2.4 g/dl (3.4-5.0); BLOOD UREA NITROGEN 29.5 mg/dL (7-18); CALCIUM 8.3 mg/dL (8.5-10.1)
[2023-04-14 10:24] LABS: CREATININE 2.4 mg/dL (0.55-1.3)
[2023-04-14 10:25] LABS: BILIRUBIN,TOTAL 0.4 mg/dL (0.2-1); TOT PROT 7.7 g/dl (6.4-8.2)
[2023-04-14 14:46] VITALS: RESP 18
[2023-04-15 06:57] VITALS: BP 153/61; PULSE 60; TEMP 98.6
[2023-04-15] MEDS ORDERED: INSULIN ASPART SLIDING SCALE (NOVOLOG) 1 VIAL SQ ONE (11:17)
== END 2023-04-15 13:08 | disposition home or self-care (01) | DRG 872 ==
LOC: JER 14:07 → JERBED 20:59 → J6S 04-08 12:55
PROVIDERS: ADMIT Internal Medicine; ATTEND Internal Medicine
DX: A41.89 Other specified sepsis (principal); L97.818 Non-pressure chronic ulcer of other part of right lower leg with other specified severity; L03.115 Cellulitis of right lower limb; J98.11 Atelectasis; L08.9 Local infection of the skin and subcutaneous tissue, unspecified; D64.9 Anemia, unspecified; E78.5 Hyperlipidemia, unspecified; I89.0 Lymphedema, not elsewhere classified; E11.622 Type 2 diabetes mellitus with other skin ulcer; I12.9 Hypertensive chronic kidney disease with stage 1 through stage 4 chronic kidney disease, or unspecified chronic kidney disease; E11.22 Type 2 diabetes mellitus with diabetic chronic kidney disease; N18.30 Chronic kidney disease, stage 3 unspecified; B95.1 Streptococcus, group B, as the cause of diseases classified elsewhere; B95.62 Methicillin resistant Staphylococcus aureus infection as the cause of diseases classified elsewhere; B96.89 Other specified bacterial agents as the cause of diseases classified elsewhere; B96.5 Pseudomonas (aeruginosa) (mallei) (pseudomallei) as the cause of diseases classified elsewhere; E66.9 Obesity, unspecified; Z68.37 Body mass index [BMI] 37.0-37.9, adult
CPT/HCPCS: 36415; 36600; 71045-TC-FY; 73590-TC-LT-FY; 73590-TC-RT-FY; 73630-TC-LT; 73630-TC-RT-FY; 73700-TC-RT; 76775-TC; 80048; 80053; 82728; 82803; 82962; 83540; 83550; 83735; 83880; 84100; 85025; 85027; 85045; 85610; 85651; 85730; 86140; 86850; 86900; 86901; 87040; 87070; 87077; 87186; 87205; 93005; 93010; 93970-TC; 99285-25; G0463-25; G0480; J1644; J3370